=== PATIENT | male | born 1960 | race Caucasian/White ===

== ENCOUNTER 2022-06-13 19:49 | Emergency (ER) | payer BC ==
--- OUTSIDE RECORDS SUMMARY | 2022-06-13 19:52 | XMS REPORT | Clinical Summary ---
:1960 Author Organization [facility] MD [facility] Address [address] [place] [address] Care Team Providers Name Role Phone Jeb Mendoza MD Primary Care Provider Aaron Mckoy MD Unavailable Angelica Hess MD Unavailable Angelica Hess MD Unavailable Carina Pisano Unavailable Unavailable Jeb Mendoza MD Unavailable Russell Rodrigues MD Unavailable Unavailable Cristopher James PhD Unavailable Unavailable Randell Coley MD Unavailable Kassandra Rivers MD Unavailable Iliana Carter Unavailable Antony Cardozo Unavailable Michelle Ordoñez MD Unavailable Aaron Patel Unavailable Leslie Patel PhD Unavailable [phone] Allergies Active Allergy Reactions Severity Noted Date Comments Penicillins Other (See Comments) 12/12/2014 Unknown reaction Medications Medication Sig Dispensed Refills Start Date End Date Status enalapril (VASOTEC) 10 mg Take 10 mg by 0 Active tabletIndications: mouth daily hypertension Indications: Hypertension. zolpidem (AMBIEN) 10 mg Take 1 tablet 0 Active tablet by mouth at bedtime. aspirin 81 mg EC tablet Take 81 mg by 0 Active mouth daily. diclofenac sodium Take by mouth. 0 Active (VOLTAREN) 75 mg EC tablet multivitamin capsule Take 1 capsule 0 Active by mouth daily. UNABLE TO FIND Take 1 tablet 0 A ctive by mouth daily. Med Name: PREVAGEN methylPREDNISolone Take as 21 tablet 0 05/07/2021 Active (Medrol, Jozef,) 4 mg directed tabletIndications: (Directions on Gastroesophageal reflux blister pack) disease, Squamous cell carcinoma of larynx omeprazole (PriLOSEC) 40 Take 1 capsule 30 capsule 3 2 Active MG capsuleIndications: (40 mg) by Laryngitis mouth every morning before breakfast. varenicline (Chantix) 1 Take 1 tablet 60 tablet 2 05/07/2021 Active mg tabletIndications: (1 mg) by Primary malignant mouth twice neoplasm of glottis daily. 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 Nicotine dependence 03/30/2016 Surgical History Surgery Date Site/Laterality Comments VASECTOMY EUA DIRECT LARYNGOSCOPY W/BX 01/07/2013 [place] LARYNGOSCOPY DIRECT 01/28/2019 Mouth/N/A Procedure : DIRECT OPERATIVE OPERATIVE W/BIOPSY LARYNGOSCOPY WITH BIOPSY; Surgeon: Jeb walden MD; Location: [facility]; Service: [facility] - HEAD & NECK SURGERY Medical History Medical History Date Comments Hypertension Arthritis H/O: Tia Chronic obstructive pulmonary disease Gastroesophageal reflux disease Social History Tobacco Use Types Packs/Day Years Used Date Smoking Tobacco: Every Day Cigarettes 2 40 Smokeless Tobacco: Never Comments: puffs off 5 cigarettes per day Alcohol Use Standard Drinks/Week Comments Yes 0 (1 standard drink = 0.6 oz pure alcoho l) Sex Assigned at Date Recorded Not on file Obstetrics History Last Filed Vital Signs Not on file Plan of Treatment Health Maintenance Due Date Last Done Comments COVID-19 Vaccination (#1) 04/12/1959 Results Not on fileafter 06/13/2021 Insurance Payer Benefit Plan / Subscriber ID Effective Dates Phone Addre ss Type Group [employer]PO POS [id number] 2007-Present [id number] [place] [address] Care 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 [employer] Relationship Specialty Start Date End Date Jeb Mendoza MD PCP - General 07/01/[address] [place] [id number] Aaron Mckoy MD PCP - External Primary Care 12/25/12 [address] [place] [address] Angelica Hess MD PCP - External Referring 12/13/12 [address] [place] [phone] Angelica Hess MD PCP - External Follow Up A 12/13/12 [address] [place] [phone] Carina Pisano PA Physician Child & Adolescent Psychiatrist 07/08/15 Jeb Mendoza MD Physician 07/08/[address] [place] [id number] Russell Rodrigues MD Physician 07/08/15 Cristopher James, PhD Physician 07/08/15 Randell Coley MD Physician 07/08/[address] [place] [id number] Kassandra Rivers MD Physician 07/08/[address] [place] [id number] Iliana Carter PA Physician Child & Adolescent Psychiatrist 07/08/[address] [place] [phone] Antony Cardozo PA Physician Child & Adolescent Psychiatrist 07/08/[address] [place] [phone] Michelle Ordoñez MD Physician 07/08/[address] [place] [phone] Aaron Patel PA Physician Child & Adolescent Psychiatrist 07/08/[address] [place] [phone] Leslie aPtel, Speech Language Pathologist 07/08/[address] [place] [id number]
--- OUTSIDE RECORDS SUMMARY | 2022-06-13 19:53 | XMS REPORT | Continuity of Care Document ---
:1960 Author Organization [facility] t Address [address] [place] [address] Care Team Providers Name Role Phone [phone] Primary Care Physician Unavailable Sim Parr MD Attending Clinician Lab, Ang - Db Attending Clinician Unavailable SIM PARR Attending Clinician Unavailable SIM PARR Attending Clinician Unavailable JEFFRY RICCI Attending Clinician Unavailable CLARY HARMAN Attending Clinician Unavailable Doctor Unassigned, [place] Attending Clinician Unavailable 2, [facility] Attending Clinician Unavailable Payers Payer Name Policy Type Policy Number Effective Date Expiration Date S miah [place] POS [id number] 2007 00:00:00 Problems Condition Condition Condition Status Onset Resolution Last Treating Co mments Source Name Details Category Date Date Treatment Clinician Date H/O: TIA H/O: TIA Disease Active Overview: Un mayuri 01-28 Formattin ity of 00:00: g of this note might be [facility] mantilla n from the Cancer original. 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 Center Added automatic ally from request for surgery [id number] Primary Primary Disease Active Univers malignant malignant 08-30 ity of neoplasm neoplasm 00:00: [place] of glottis of glott[place] 00 MD [facility] Nicotine Nicotine Disease Active 2015-05 Unive rs dependence dependence -30 it y of 00:00: [place] 00 MD [facility] No known No known Disease Unive rs active active ity of problems problems [facility] Allergies, Adverse Reactions, Alerts Allergy Allergy Status Severity Reaction(s) Onset Inactive Treating Comm ents Source Name Type Date Date Clinician Penicill Propensi Active Other (See Unknown U nivers ins ty to Comments) 8- reaction ity o f adverse 00:00: [place] reaction 00 MD zoran camejo [facility] Penicill Propensi Active Other - See Unknown Univers ins ty to comments 8-14 reaction ity of adverse 00:00: [place] reaction 00 Medical [facility] PENICILL Drug Active Other-Cmnt Univ ers INS Class 8-14 ity of 00:00: [place] 00 [facility] Social History Social Habit Start Date Stop Date Quantity Comments Source History of tobacco Cigarette Smoker University of use [facility] Exposure to 2021-10-26 2021-11-05 Not sure [facility] SARS-CoV-2 (event) 00:00:00 10:11:00 [facility] Tobacco use and 2019-11-26 2019-11-26 Smokeless tobacco Un iversity of exposure 00:00:00 00:00:00 non-user [facility] Alcohol intake 2019-05-02 2019-05-02 Current drinker Unive rsity of 00:00:00 00:00:00 of alcohol [facility] Cigarettes smoked 2018-03-14 2018-03-14 Univers ity of current (pack per 00:00:00 00:00:00 Marline Kulkarni ) - Reported Cancer Ce nter Cigarette 2018-03-14 2018-03-14 University of pack-years 00:00:00 00:00:00 [facility] Tobacco Comment 2016-07-01 2016-07-01 puffs off 5 Universi ty of 00:00:00 00:00:00 cigarettes per [place] MD [facility] Sex Ass[birth year] At [birth year] Universit y of 00:00:00 00:00:00 [facility] Smoking Status Start Date Stop Date Source Smokes tobacco daily 2019-11-26 00:00:[address] [facility] ity of [place] [facility] Medications Ordered Filled Start Stop Current Ordering Indication Dosage Frequency Signature Comments Components Source Medication Medication Date Date Medication? Clinician (SIG) Name Name mirtazapine 2021-05 Yes [id number] 15mg TAKE 1 U nivers 15 mg 2-16 TABLET BY ity of tablet 00:00: MOUTH AT 00 BEDTIME Medical Branch diclofenac 2021-05 Yes TAKE 1 Unive rs 75 mg EC 2-16 TABLET BY ity of tablet 00:00: MOUTH 00 THREE Medical TIMES Branch DAILY NEEDED FOR PAIN diclofenac 2021-05 Yes 75mg Take 1 Unive rs 75 mg EC 1-21 tablet by ity of tablet 00:00: mouth 3 00 (three) Medical times Branch daily as needed for Pain. diclofenac 2021-05 No 75mg Take 1 Univ ers 75 mg EC 1-21 12-16 tablet by ity o f tablet 00:00: 00:00 mouth 3 [place] 00 :00 (three) Medical times Branch daily as needed for Pain. DICLOFENAC Yes TAKE 1 Unive rs 75 mg EC 9-14 TABLET BY ity of tablet 00:00: MOUTH 00 THREE Medical TIMES Branch DAILY NEEDED FOR PAIN enalapril Yes Take 1 Univer s 10 mg 9-14 tablet by ity of tablet 00:00: mouth once 00 daily Medical Branch esomeprazol Yes TAKE 1 Univ ers e 40 mg 9-14 CAPSULE BY ity of capsule 00:00: MOUTH ONCE a s DAILY WITH Medical BREAKFAST Branch enalapril Yes Take 1 Univer s 10 mg 9-14 tablet by ity of tablet 00:00: mouth once 00 daily Medical Branch esomeprazol Yes TAKE 1 Univ ers e 40 mg 9-14 CAPSULE BY ity of capsule 00:00: MOUTH ONCE [place] 00 DAILY WITH Medical BREAKFAST Branch enalapril Yes Take 1 Univer s 10 mg 9-14 tablet by ity of tablet 00:00: mouth once [place] 00 daily Medical Branch esomeprazol Yes TAKE 1 Univ ers e 40 mg 9-14 CAPSULE BY ity of capsule 00:00: MOUTH ONCE [place] 00 DAILY WITH Medical BREAKFAST Branch DICLOFENAC 0 2021- No TAKE 1 Univ ers 75 mg EC 9-14 11-21 TABLET BY ity o f tablet 00:00: 00:00 MOUTH [place] 00 :00 THREE Medical TIMES Branch DAILY NEEDED FOR PAIN DICLOFENAC Yes TAKE 1 Unive rs 75 mg EC 8-08 TABLET BY ity of tablet 00:00: MOUTH [place] 00 THREE Medical TIMES Branch DAILY NEEDED FOR PAIN DICLOFENAC 2021- No TAKE 1 Univ ers 75 mg EC 8-08 09-14 TABLET BY ity o f tablet 00:00: 00:00 MOUTH [place] 00 :00 THREE Medical TIMES Branch DAILY NEEDED FOR PAIN methylPREDN 0 Yes [id number] Take by [facility] ISolone 4 7-08 mouth ity of mg tablets 00:00: [place]-INSTRU [place] 00 CTIONS. Medical follow Branch package directions mirtazapine Yes [id number] 15mg Take 1 U nivers 15 mg 7-08 tablet by ity of tablet 00:00: mouth at [place] 00 bedtime. Medical Branch methylPREDN 2021-0 Yes [id number] Take by [facility] ISolone 4 7-08 mouth ity of mg tablets 00:00: SEE-INSTRU [place] 00 CTIONS. Medical follow Branch package directions mirtazapine 2021-0 Yes [id number] 15mg Take 1 U nivers 15 mg 7-08 tablet by ity of tablet 00:00: mouth at [place] 00 bedtime. Medical Branch methylPREDN 2021-0 Yes [id number] Take by Univers ISolone 4 7-08 mouth ity of mg tablets 00:00: SEE-INSTRU [place] 00 CTIONS. Medical follow Branch package directions mirtazapine 0 Yes [id number] 15mg Take 1 U nivers 15 mg 7-08 tablet by ity of tablet 00:00: mouth at [place] 00 bedtime. Medical Branch methylPREDN 2021-0 Yes [id number] Take by [facility] ISolone 4 7-08 mouth ity of mg tablets 00:00: SEE-INSTRU [place] 00 CTIONS. Medical follow Branch package directions mirtazapine Yes [id number] 15mg Take 1 U nivers 15 mg 7-08 tablet by ity of tablet 00:00: mouth at [place] 00 bedtime. Medical Branch methylPREDN Yes [id number] Take by [facility] ISolone 4 7-08 mouth ity of mg tablets 00:00: SEE-INSTRU [place] 00 CTIONS. Medical follow Branch package directions mirtazapine 2021- No [id number] 15mg Take 1 Univers 15 mg 7-08 12-16 tablet by ity of tablet 00:00: 00:00 mouth at [place] 00 :00 bedtime. Medical Branch DICLOFENAC Yes TAKE 1 Unive rs 75 mg EC 7-05 TABLET BY ity of tablet 00:00: MOUTH 00 THREE Medical TIMES Branch DAILY NEEDED FOR PAIN DICLOFENAC 2021- No TAKE 1 Univ ers 75 mg EC 7-05 08-08 TABLET BY ity o f tablet 00:00: 00:00 MOUTH [place] 00 :00 THREE Medical TIMES Branch DAILY NEEDED FOR PAIN ENALAPRIL Yes Take 1 Univer s 10 mg 6-13 tablet by ity of tablet 00:00: mouth once daily Medical Branch ESOMEPRAZOL Yes TAKE 1 Univ ers E 40 mg 6-13 CAPSULE BY ity of capsule 00:00: MOUTH ONCE s DAILY WITH Medical BREAKFAST Branch ENALAPRIL Yes Take 1 Univer s 10 mg 6-13 tablet by ity of tablet 00:00: mouth once daily Medical Branch ESOMEPRAZOL Yes TAKE 1 Univ ers E 40 mg 6-13 CAPSULE BY ity of capsule 00:00: MOUTH ONCE s DAILY WITH Medical BREAKFAST Branch ENALAPRIL 2021- No Take 1 Unive rs 10 mg 6-13 09-14 tablet by ity of tablet 00:00: 00:00 mouth once [place] 00 :00 daily Medical Branch ESOMEPRAZOL 0 2021- No TAKE 1 Uni vers E 40 mg 6-13 09-14 CAPSULE BY ity o f capsule 00:00: 00:00 MOUTH ONCE Abdelrahman as 00 :00 DAILY WITH Medical BREAKFAST Branch ZOLPIDEM 10 Yes [id number] 10mg TAKE 1 U nivers mg tablet 5-27 TABLET BY ity o f 00:00: MOUTH AT [place] 00 BEDTIME Medical NEEDED FOR Branch INSOMNIA ZOLPIDEM 10 Yes [id number] 10mg TAKE 1 U nivers mg tablet 5-27 TABLET BY ity o f 00:00: MOUTH AT [place] 00 BEDTIME Medical NEEDED FOR Branch INSOMNIA ZOLPIDEM 10 Yes [id number] 10mg TAKE 1 U nivers mg tablet 5-27 TABLET BY ity o f 00:00: MOUTH AT [place] 00 BEDTIME Medical NEEDED FOR Branch INSOMNIA ZOLPIDEM 10 Yes [id number] 10mg TAKE 1 U nivers mg tablet 5-27 TABLET BY ity o f 00:00: MOUTH AT [place] 00 BEDTIME Medical NEEDED FOR Branch INSOMNIA ZOLPIDEM 10 Yes [id number] 10mg TAKE 1 U nivers mg tablet 5-27 TABLET BY ity o f 00:00: MOUTH AT [place] 00 BEDTIME Medical NEEDED FOR Branch INSOMNIA UNABLE TO Yes 1{tbl} Take 1 Univ ers FIND -07 tablet by ity of 08:59: mouth [place] 16 daily. Med Name: [facility] multivitami Yes 1{capsu Take 1 U nivers n capsule 05-07 le} capsule by ity of 08:57: mouth [place] 22 daily. MD [facility] enalapril Yes hypertensio 10mg Take 10 mg Univers (VASOTEC) 07 n by mouth ity of 10 mg 08:55: daily [place] tablet 48 Indication s: [facility] zolpidem Yes 1{tbl} Take 1 Unive rs (AMBIEN) 10 -07 tablet by ity [facility] mg [facility] aspirin 81 Yes 81mg Take 81 mg U nivers mg EC 07 by mouth ity of tablet 08:55: daily. [place] 48 MD [facility] diclofenac Yes Take by Univ ers sodium 05-07 mouth. ity of (VOLTAREN) 08:55: [place] 75 mg EC 48 MD tablet [facility] methylPREDN Yes Squamous Take as Univers ISolone 05-07 cell directed ity of (Medrol, 00:00: carcinoma (Direction [place] Jozef,) 4 mg 00 of larynx s on MD tablet blister [facility] pack) n [facility] omeprazole Yes Laryngitis 40mg Take 1 Univers (PriLOSEC) 05-07 capsule ity of 40 MG 00:00: (40 mg) by [place] capsule 00 mouth MD every Anderso morning n before Cancer breakfast. [place] varenicline Yes Primary 1mg Take 1 U nivers (Chantix) 1 05-07 malignant tablet (1 ity of mg tablet 00:00: neoplasm of mg) by 00 glott[place] mouth MD twice Anderso daily. n [facility] buPROPion 2018-05 Yes [id number] 75mg Take 1 U nivers 75 mg 1-05 tablet by ity of tablet 00:00: mouth 2 00 (two) Medical times Branch daily. For the first week, take one per day. propranolol 2018-05 Yes 10mg Take 1 Univ ers 10 mg 1-05 tablet by ity of tablet 00:00: mouth [place] 00 daily. Medical Branch buPROPion 2018-05 Yes [id number] 75mg Take 1 U nivers 75 mg 1-05 tablet by ity of tablet 00:00: mouth 2 [place] (two) Medical times Branch daily. For the first week, take one per day. propranolol 2018-05 Yes 10mg Take 1 Univ ers 10 mg 1-05 tablet by ity of tablet 00:00: mouth [place] 00 daily. Medical Branch buPROPion 2018-05 Yes [id number] 75mg Take 1 U nivers 75 mg 1-05 tablet by ity of tablet 00:00: mouth 2 [place] (two) Medical times Branch daily. For the first week, take one per day. propranolol 2018-05 Yes 10mg Take 1 Univ ers 10 mg 1-05 tablet by ity of tablet 00:00: mouth [place] 00 daily. Medical Branch buPROPion 2018-05 Yes [id number] 75mg Take 1 U nivers 75 mg 1-05 tablet by ity of tablet 00:00: mouth 2 [place] 00 (two) Medical times Branch daily. For the first week, take one per day. propranolol 2018-05 Yes 10mg Take 1 Univ ers 10 mg 1-05 tablet by ity of tablet 00:00: mouth 00 daily. Medical Branch buPROPion 2018-05 Yes [id number] 75mg Take 1 U nivers 75 mg 1-05 tablet by ity of tablet 00:00: mouth (two) Medical times Branch daily. For the first week, take one per day. propranolol 2018-05 Yes 10mg Take 1 Univ ers 10 mg 1-05 tablet by ity of tablet 00:00: mouth 00 daily. Medical Branch varenicline Yes Take one Un mayuri (CHANTIX 7-25 0.5mg tab ity of STARTING 00:00: by mouth [facility]) 00 once daily Med ical 0.5 mg for 3 Branch (11)- 1 mg days, then (42) tablet one 0.5mg tab twice daily for 4 days, then one 1mg tab twice daily. varenicline Yes Take one Un mayuri (CHANTIX 7-25 0.5mg tab ity of STARTING 00:00: by mouth [facility]) 00 once daily Med ical 0.5 mg for 3 Branch (11)- 1 mg days, then (42) tablet one 0.5mg tab twice daily for 4 days, then one 1mg tab twice daily. varenicline Yes Take one Un mayuri (CHANTIX 7-25 0.5mg tab ity of STARTING 00:00: by mouth [facility]) 00 once daily Med ical 0.5 mg for 3 Branch (11)- 1 mg days, then (42) tablet one 0.5mg tab twice daily for 4 days, then one 1mg tab twice daily. varenicline Yes Take one Un mayuri (CHANTIX 7-25 0.5mg tab ity of STARTING 00:00: by mouth [facility]) 00 once daily Med ical 0.5 mg for 3 Branch (11)- 1 mg days, then (42) tablet one 0.5mg tab twice daily for 4 days, then one 1mg tab twice daily. varenicline Yes Take one Un mayuri (CHANTIX 7-25 0.5mg tab ity of STARTING 00:00: by mouth [place] MONTH ) 00 once daily Med ical 0.5 mg for 3 Branch (11)- 1 mg days, then (42) tablet one 0.5mg tab twice daily for 4 days, then one 1mg tab twice daily. varenicline 2017-05 Yes 1 by mouth Univers 0.5 mg 2-07 per day ity of tablet 00:00: for 3 [place] 00 days, then Medical one by Branch mouth twice per day. varenicline 2017-05 Yes 1 by mouth Univers 0.5 mg 2-07 per day ity of tablet 00:00: for 3 00 days, then Medical one by Branch mouth twice per day. varenicline 2017-05 Yes 1 by mouth Univers 0.5 mg 2-07 per day ity of tablet 00:00: for 3 00 days, then Medical one by Branch mouth twice per day. varenicline 2017-05 Yes 1 by mouth Univers 0.5 mg 2-07 per day ity of tablet 00:00: for 3 days, then Medical one by Branch mouth twice per day. varenicline 2017-05 Yes 1 by mouth Univers 0.5 mg 2-07 per day ity of tablet 00:00: for 3 days, then Medical one by Branch mouth twice per day. ULTRAM 50 2021- No 102 every Un mayuri MG ORAL TAB -17 11-05 8 hrs as ity of 00:00: 00:00 needed for [place] 00 :00 [facility] Immunizations Ordered Filled Immunization Date Status Comments [facility] e Immunization Name Name Td 2009-09-14 Completed [facility] 00:00:00 [facility] Td 2009-09-14 Completed [facility] 00:00:00 [facility] Td 2009-09-14 Completed [facility] 00:00:00 [facility] Td 2009-09-14 Completed University 00:00:00 [facility] Td 2009-09-14 Completed [facility] 00:00:00 [facility] Vital Signs Vital Name Observation Time Observation Value Comments Source Systolic blood 2021-11-05 15:57:00 117 mm[Hg] Declaner leif [facility] Diastolic blood 2021-11-05 15:57:00 65 mm[Hg] Adriane rsgunjan [facility] Heart rate 2021-11-05 15:56:00 76 /min [facility] Body height 2021-11-05 15:56:00 182.9 cm [facility] Body weight 2021-11-05 15:56:00 56.7 kg [facility] BMI 2021-11-05 15:56:00 16.95 kg/m2 [facility] Oxygen saturation 2021-11-05 15:56:00 97 /min [facility] in Arterial blood Medical Br anch by Pulse oximetry Procedures This patient has no known procedures. Plan of Care Planned Activity Planned Date Details Comments Source Future Scheduled 2021-12-11 COVID-[address] [facility] Test 11:19:10 (#1) [code = COVID-19 MD [facility] Vaccination (#1)] Center Encounters Start End Encounter Admission Attending Care Care Encounter Source Date/Time Date/Time Type Type Clinicians Facility Department ID 2022-04-15 2022-04-15 [facility] 1.2.840.114 [id number] Univers 00:00:00 00:00:00 [facility] [id number] ity of [place] [id number] Abdelrahman as ALVAREZ?BLEA [id number] [address] MEDICAL OFFICE [facility] 2022-03-21 2022-03-[address] [facility] 1.2.840.114 [id number] Univers 00:00:00 00:00:00 [facility] [id number] ity of [place] [id number] Abdelrahman as ALVAREZ?BLEA [id number] [address] MEDICAL OFFICE [facility] 2022-01-12 2022-01-12 [facility] 1.2.840.114 [id number] Univers 00:00:00 00:00:00 [facility] [id number] ity of [place] [id number] Abdelrahman as ALVAREZ?BLEA [id number] [address] OFFICE [facility] 2021-12-04 2021-12-04 [facility] 1.2.840.114 [id number] Univers 00:00:00 00:00:00 [facility] [id number] ity of [place] [id number] Abdelrahman as ALVAREZ?BLEA [id number] Hi dillon SILVEIRA [address] [place] [address] 2021-11-05 2021-11-05 Motel Clerk Lab, Ang - Db [facility] 1.2.840.1 [id number] Univers 12:15:00 12:30:00 Visit Sim Parr [facility] [id number]. 10 ity of [place] [id number] Abdelrahman as ALVAREZ?BLEA [id number] [facility] RAOUL [address] [facility] 2021-11-05 2021-11-05 Outpatient Jose NIEVESGamaliel SIM [facility] [id number] Univers 10:20:00 12:02:58 KESHAV SIM [facility] 2021-11-05 2021-11-05 [facility] 1.2.840.114 [id number] Univers 10:20:00 12:02:58 Visit [facility] [id number] ity of [place] [id number] Abdelrahman as ALVAREZ?BLEA [id number] [address] 2021-11-05 2021-11-05 Outpatient Jose KESHAV SIM [facility] [id number] Univers 10:20:00 12:02:58 KESHAVSIM [facility] 2021-10-31 2021-10-31 [facility]ill [facility] 1.2.840.114 [id number] Univers 00:00:00 00:00:00 [facility] [id number] ity of [place] [id number] Abdelrahman as ALVAREZ?BLEA [id number] [facility] [address] 2021-10-09 2021-10-09 [facility] 1.2.840.114 [id number] Univers 00:00:00 00:00:00 [facility] [id number] ity of [place] [id number] Abdelrahman as ALVAREZ?BLEA [id number] [address] 2021-09-16 2021-09-[address] [facility] 1.2.840.114 [id number] Univers 00:00:00 00:00:00 [facility] [id number] ity of [place] [id number] Abdelrahman as ALVAREZ?BLEA [id number] [address] 2021-08-09 2021-08-[address] [facility] 1.2.840.114 [id number] Univers 00:00:00 00:00:00 [facility] [id number] ity of [place] [id number] Abdelrahman as ALVAREZ?BLEA [id number] [address] 2021-07-19 2021-07-[address] [facility] 1.2.840.114 [id number] Univers 00:00:00 00:00:00 [facility] [id number] ity of [id number] [id number] [address] 2021-06-14 2021-06-[address] [facility] 1.2.840.114 [id number] Univers 00:00:00 00:00:00 [facility] [id number] ity of [place] [id number] Abdelrahman as ALVAREZ?BLEA [id number] [address] 2021-05-07 2021-05-07 Outpatient JEFFRY COOL MDA, MDA [id number] 08:40:27 23:59:00 Nelson camejo 2021-04-16 2021-04-16 Outpatient JEFFRY COOL MDA, MDA [id number] 11:08:22 23:59:00 Nelson camejo 2021-04-16 2021-04-16 Outpatient SARAH HAMRAN MDA MDA [id number] 08:41:15 11:07:00 CLARY Torres rso n 2021-04-16 2021-04-16 Outpatient SARAH HARMAN MDA MDA [id number] 07:45:00 08:40:00 CLARY colungao n 2021-04-16 2021-04-16 Outpatient SARAH HARMAN MDA MDA [id number] 08:12:16 08:12:16 CLARY Torres cuauhtemoc n 2021-03-30 2021-03-30 Refpaco Parr [facility] 1.2.840.114 [id number] Univers 00:00:00 00:00:00 [facility] [id number] ity of [place] [id number] Abdelrahman as ALVAREZ?BLEA [id number] [address] OFFICE [facility] 2021-03-02 2021-03-02 Outpatient SIM SANDHU [facility] [id number] Univers 16:20:00 16:20:00 SIM PARR [facility] 2021-02-03 2021-02-03 Refpaco Parr [facility] 1.2.840.114 [id number] Univers 00:00:00 00:00:00 Sim [facility] [id number] ity of [id number] Profess[place] [id number] [address] 2020-12-21 2020-12-21 Office Keshav [facility] 1.2.840.114 [id number] Univers 10:15:56 11:18:23 Visit [facility] [id number] ity of [place] [id number] Abdelrahman as Alvarez?Blea [id number] [address] 2020-12-21 2020-12-21 Outpatient SIM SANDHU [facility] [id number] Univers 10:40:00 10:40:00 SIM PARR [facility] 2020-12-11 2020-12-11 Telephone Keshav [facility] 1.2.840.114 [id number] Univers 00:00:00 00:00:00 Sim Go[place] [id number] ity of [place] [id number] [place] [phone] Hi dical nal 092 [facility] 2020-12-11 2020-12-11 [facility] 1.2.840.114 [id number] Univers 00:00:00 00:00:00 Sim Goetz [id number] [place] of [place] [id number] [phone] Hi dical nal [address] [place] [address] 2020-12-02 2020-12-02 [facility] 1.2.840.114 [id number] Univers 00:00:00 00:00:00 Sim Goetz [id number] ity of [place] [id number] [place] [phone] Hi dicva nal [address] [place] [address] 2020-11-25 2020-11-[address] [facility] 1.2.840.114 [id number] Univers 00:00:00 00:00:00 Sim GOETZ [id number] ity of [facility] [id number] [place] PROF[place] [phone] Hi dical NAL [address] [place] [address] 2020-11-20 2020-11-[address] [facility] 1.2.840.114 [id number] Univers 00:00:00 00:00:00 Sim Goetz [id number] it[place] of [place] [id number] [phone] Hi dical nal [address] [place] [address] 2020-10-25 2020-10-[address] [facility] 1.2.840.114 [id number] Univers 00:00:00 00:00:00 Sim [place] [id number] ity of [place] [id number] [place] [phone] Hi dical nal [address] [place] [address] 2020-09-29 2020-09-29 Refpaco [facility] 1.2.840.114 [id number] Univers 00:00:00 00:00:00 Sim Goetz [id number] [place] of [place] [id number] [phone] Hi dicva nal 092 [facility] 2020-08-19 2020-08-19 Refpaco [facility] 1.2.840.114 [id number] Univers 00:00:00 00:00:00 Sim Goetz [id number] [place] of [place] [id number] [phone] Hi dicva nal [address] [place] [address] 2020-07-17 2020-07-17 [facility] 1.2.840.114 [id number] Univers 00:00:00 00:00:00 Sim Goetz [id number] ity of [place] [id number] [phone] [facility] [address] [place] [address] 2020-07-11 2020-07-11 [facility] 1.2.840.114 [id number] Univers 00:00:00 00:00:00 Sim Goetz [id number] [place] of [place] [id number] [phone] [facility] [address] [place] [address] 2020-05-29 2020-05-29 Orders Doctor MAMIE 1.2.840.114 [id number] Univers 00:00:00 00:00:00 Only Unassigned, VIOLET [id number] ity of [place] [facility] 4.2.7.2.686 Abdelrahman as [phone] [address] 2020-05-27 2020-05-27 [facility] 1.2.840.114 [id number] Univers 00:00:00 00:00:00 Sim Goetz [id number] [id number] [phone] [address] 2020-05-21 2020-05-21 Refpaco Keshav [facility] 1.2.840.114 [id number] Univers 00:00:00 00:00:00 Sim Goetz [id number] [id number] [phone] [address] 2020-04-07 2020-04-07 Orders Doctor MAMIE 1.2.840.114 [id number] Univers 00:00:00 00:00:00 Only Unassigned, VIOLET [id number] ity of [place] [facility] 4.2.7.2.686 Abdelrahman as [phone] [address] 2020-04-02 2020-04-02 [facility] 1.2.840.114 [id number] Univers 00:00:00 00:00:00 Sim Goetz [id number] [place] [phone] [address] 2020-02-25 2020-02-25 [facility] 1.2.840.114 [id number] Univers 00:00:00 00:00:00 Sim Goetz [id number] it[place] of [place] [phone] [address] 2019-12-03 2019-12-03 [facility] 1.2.840.114 [id number] Univers 00:00:00 00:00:00 Sim Goetz [id number] [place] of [id number] [phone] [address] 2019-11-26 2019-11-26 Motel Clerk 2, Adc Lab [facility] 1.2.840.114 [id number] Univers 10:16:55 10:31:55 Visit Sim Parr 350.1.13 .10 it[place] of [place]2.[place] [phone] Hi dical nal 353 [facility] 2019-11-26 2019-11-26 Office Keshav [facility] 1.2.840.114 [id number] Univers 09:17:01 10:03:28 Visit Sim Goetz 350.1.13.10 it[place] of [place] [phone] Hi dicva nal 0[facility] 2019-11-26 2019-11-26 Outpatient SIM SANDHU [facility] [id number] Univers 09:20:00 09:20:00 SIM PARR ity of [facility] 2019-11-20 2019-11-20 Telephone Keshav [facility] 1.2.840.114 [id number] Univers 00:00:00 00:00:00 Sim Goetz 350.1.13.10 it[place] of [place] [phone] [facility] nal 0[facility] 2019-10-08 2019-10-08 [facility] 1.2.840.114 [id number] Univers 00:00:00 00:00:00 Sim Goetz 350.1.13.10 ity of [place]2.[place] [phone] Hi dical [place]al [address] [place] [address] 2019-09-02 2019-09-02 [facility] 1.2.840.114 [id number] Univers 00:00:00 00:00:00 Sim Goetz 350.1.13.10 [place] of [place]2.[place] [phone] Hi dicva nal [address] [place] [address] 2019-08-18 2019-08-18 [facility] 1.2.840.114 [id number] Univers 00:00:00 00:00:00 Sim Goetz 350.1.13.10 [place]2.[place] [phone] Me dical nal 092 [facility] 2019-07-31 2019-07-31 [facility] 1.2.840.114 [id number] Univers 00:00:00 00:00:00 Sim Goetz 350.1.13.10 [place] of [place]2.[place] [phone] Hi dical nal 2 [facility] 2019-07-26 2019-07-26 [facility] 1.2.840.114 [id number] Univers 00:00:00 00:00:00 Sim Goetz 350.1.13.10 [place]2.[place] [phone] Hi dicva nal 2 [facility] 2019-06-13 2019-06-13 [facility] 1.2.840.114 [id number] Univers 00:00:00 00:00:00 Sim Goetz 350.1.13.10 [place] [phone] [address] Results This patient has no known results.
[2022-06-13 21:46] LABS: Absolute Lymphocytes (CBC) 1.8 K/uL (0.7-4.9); Hematocrit 43.2 % (39.6-49.0); Lymphocytes % 18.4 % (15.3-44.8); MCV 92.6 fL (80-100); MPV 8.1 fL (7.6-11.3); RBC Red Blood Cell Count 4.66 M/uL (4.33-5.43)
[2022-06-13 22:11] LABS: Magnesium 2.3 mg/dL (1.6-2.4); Potassium 4.1 mmol/L (3.5-5.1); Troponin High Sensitivity 9.3 pg/mL (<58.9)
[2022-06-13 22:22] LABS: SARS-COV-2 RT PCR NEGATIVE (NEGATIVE)
--- NOTE | 2022-06-13 22:23 | RAD REPORT ---
EXAM DESCRIPTION: [place] Single View06/13/2022 10:13 pm CLINICAL HISTORY: left upper arm pain COMPARISON: CHEST PA AND LAT 2 VIEW dated 11/15/2012; CHEST SINGLE VIEW dated 12/23/2011; CHEST SINGLE VIEW dated 06/23/2008 TECHNIQUE: Portable AP view of the chest. FINDINGS: The lungs are clear.Mild hyperinflation. No pneumothorax or effusion. The cardiomediastina l contours are unremarkable. IMPRESSION: No acute cardiopulmonary process.
[2022-06-13] MEDS ORDERED: hydroCHLOROthiazide 25 MG TAB ONE (23:53)
--- NOTE | 2022-06-14 01:00 | EDPHYS ---
Physician Documentation [facility] Name: Josiah Monreal Age: 61 yrs Sex: Male : 1960 Arrival Date: 06/13/2022 Time: 19:53 Bed 14 Private MD: ED Physician Sonny Ferguson HPI: 06/13 20:50 This 61 yrs old Male presents to ER via Ambulatory with complaints of High Blood cp Pressure, Arm Pain. Historical: - Allergies: 20:39 No Known Allergies; jh5 - PMHx: 20:39 Hypertensive disorder; 5 - Immunization history:: Adult Immunizations up to date. - Social history:: Smoking status: Patient reports the use of cigarette tobacco products, smokes one-half pack cigarettes per day. ROS: 20:25 Constitutional: Negative for body aches, chills, fever, poor PO intake. cp 20:25 Cardiovascular: Negative for chest pain, edema, palpitations. cp 20:25 MS/extremity: Positive for pain, of the right arm. Exam: 20:30 Constitutional: The patient appears in no acute distress, alert, awake, cp non-diaphoretic, non-toxic, well developed, well nourished. 20:30 Head/Face: Normocephalic, atraumatic. cp 20:30 Chest/axilla: Inspection: normal, Palpation: is normal, no crepitus, no tenderness. cp 20:30 Cardiovascular: Rate: normal, Rhythm: regular, Edema: is not appreciated, JVD: is not appreciated. 21:53 ECG was reviewed by the Attending Physician. cp Vital Signs: 20:36 BP 182 / 93; Pulse 71; Resp 18; Temp 98.6; Pulse Ox 100% ; Weight 57.61 kg; Height 6 jh5 ft. 0 in. (182.88 cm); Pain 3/10; 22:23 BP 183 / 98 RA Sitting (auto/reg); Pulse 74; Resp 16; Pulse Ox 99% on R/A; jb4 22:25 BP 193 / 107 LA Sitting (auto/reg); Pulse 72; Resp 14; Pulse Ox 99% on R/A; jb4 23:00 BP 145 / 89; Pulse 72; Resp 16; Pulse Ox 98% on R/A; jb4 23:42 BP 168 / 87; Pulse 68; Resp 14; Pulse Ox 98% ; 4 06/14 00:00 BP 144 / 92; Pulse 73; Resp 15; Pulse Ox 97% on R/A; 4 06/13 20:36 Body Mass Index 17.23 (57.61 kg, 182.88 cm) jh5 MDM: 06/13 21:03 Patient medically screened. 06/13 20:46 Order name: Basic Metabolic Panel 06/13 20:46 Order name: CBC with Diff 06/13 20:46 Order name: Magnesium 06/13 20:46 Order name: Troponin HS 06/13 20:46 Order name: COVID-19/FLU A+B cp 06/13 20:46 Order name: Urine Microscopic Only 06/13 20:46 Order name: XRAY Chest (1 view) 06/13 21:49 Order name: CBC with Automated Diff; Complete Time: 23:06 EDMS 06/13 23:07 Interpretation: Reviewed. 06/13 22:11 Order name: Basic Metabolic Panel; Complete Time: 23:06 EDMS 06/14 00:22 Interpretation: Reviewed. 06/13 22:11 Order name: Troponin High Sensitivity; Complete Time: 23:06 EDMS 06/14 00:22 Interpretation: Reviewed. 06/13 22:11 Order name: Magnesium; Complete Time: 23:07 EDMS 06/14 00:24 Interpretation: Reviewed. 06/13 22:23 Order name: COVID-19/FLU A+B; Complete Time: 23:07 EDMS 06/14 00:24 Interpretation: Reviewed. 06/13 22:23 Order name: RAD; Complete Time: 23:07 EDMS 06/14 00:25 Interpretation: Report reviewed. 06/13 23:08 Order name: CT Head Brain wo Cont 06/13 20:46 Order name: EKG; Complete Time: 20:47 cp 06/13 20:46 Order name: Cardiac monitoring; Complete Time: 22:21 cp 06/13 20:46 Order name: EKG - Nurse/Tech; Complete Time: 21:50 cp 06/13 20:46 Order name: IV Saline Lock; Complete Time: 21:37 cp 06/13 20:46 Order name: Labs collected and sent; Complete Time: 21:37 cp 06/13 20:46 Order name: O2 Per Protocol; Complete Time: 22:21 cp 06/13 20:46 Order name: O2 Sat Monitoring; Complete Time: 22:21 cp 06/13 20:46 Order name: Blood Pressure Recheck: bilateral upper extremity; Complete Time: 22:54 cp EC:53 Rate is 78 beats/min. Rhythm is regular. VA interval is normal. QRS interval is normal. cp QT interval is normal. T waves are Inverted in lead aVR. Interpreted by me. Reviewed by me. Administered Medications: 23:56 Not Given (Physician Discretion): NS 0.9% 500 ml IV at bolus once cp 23:59 Not Given (Other Intervention Used): cloNIDine 0.1 mg PO once [facility] 23:59 Drug: Hydrochlorothiazide 25 mg Route: PO; [facility] 06/14 01:21 Follow up: Response: No adverse reaction; Marked relief of symptoms jb4 Disposition Summary: 06/14/22 01:00 Discharge Ordered Location: Home cp Problem: new cp Symptoms: have improved cp Condition: Stable cp Diagnosis - Pain in right upper arm cp - Hypertensive heart disease without heart failure cp Followup: cp - With: Private Physician - When: 2 - 3 days - Reason: Recheck today's complaints Discharge Instructions: - Discharge Summary Sheet cp - Hypertension, Adult cp - Musculoskeletal Pain cp - Aspirin and Your Heart cp - Form - Blood Pressure Record Sheet cp - How to Take Your Blood Pressure cp Forms: - Medication Reconciliation Form cp - Thank You Letter cp - Antibiotic Education cp - Prescription Opioid Use cp Prescriptions: - Hydrochlorothiazide 25 mg Oral Tablet - take 1 tablet by ORAL route once daily .; 30 tablet; Refills: 0, Product cp Selection Permitted Signatures: Dispatcher [employer] EDTX Sonny Bains PA PA cp Mannie Miranda, RN RN jb4 Susan Allen RN RN jh5 Corrections: (The following items were deleted from the chart) 06/15 01:20 01:20 Constitutional: Negative for body aches, chills, fever, poor PO intake, cp cp
--- NOTE | 2022-06-14 01:00 | ER ---
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 Coronavirus screen: Vaccine status: Patient reports being unvaccinated. Client denies travel out of the [place] in the last 14 days. Ebola Screen: Patient negative for fever greater than or equal to 101.5 degrees Fahrenheit, and additional compatible Ebola Virus Disease symptoms Patient denies exposure to infectious person. Patient denies travel to an Ebola-affected area in the 21 days before illness onset. Initial Sepsis Screen: Does the patient meet any 2 criteria? No. Patient's initial sepsis screen is negative. Does the patient have a suspected source of infection? No. Patient's initial sepsis screen is negative. Risk Assessment: Do you want to hurt yourself or someone else? Patient reports no desire to harm self or others. Onset of symptoms was June 13, 2022. 20:36 Method Of Arrival: Ambulatory [facility] 20:36 Acuity: RC 3 5 Triage Assessment: 20:39 General: Appears in no apparent distress. slender, well groomed, well developed, [facility] Behavior is calm, cooperative, appropriate for age. Pain: Complains of pain in chest. Historical: - Allergies: 20:39 No Known Allergies; 5 - PMHx: 20:39 Hypertensive disorder; [facility] - Immunization history:: Adult Immunizations up to date. - Social history:: Smoking status: Patient reports the use of cigarette tobacco products, smokes one-half pack cigarettes per day. Screenin:15 [facility] ED Fall Risk Assessment (Adult) History of falling in the last 3 months, jb4 including since admission No falls in past 3 months (0 pts) Confusion or Disorientation No (0 pts) Score/Fall Risk Level 0 - 2 = Low Risk Oriented to surroundings, Maintained a safe environment. 22:15 Abuse screen: Denies threats or abuse. Nutritional screening: No deficits noted. jb4 Tuberculosis screening: No symptoms or risk factors identified. Assessment: 22:15 General: Appears in no apparent distress. comfortable. Pain: Denies pain. Neuro: Level jb4 of Consciousness is awake, alert, obeys commands, Oriented to person, place, time, situation. Cardiovascular: Patient's skin is warm and dry. Respiratory: Airway is patent Respiratory effort is even, unlabored, Respiratory pattern is regular, symmetrical. GI: No signs and/or symptoms were reported involving the gastrointestinal system. : No signs and/or symptoms were reported regarding the genitourinary system. EENT: No signs and/or symptoms were reported regarding the EENT system. Derm: Skin is intact, Skin is pink, warm \T\ dry. Musculoskeletal: Circulation, motion, and sensation intact. Range of motion: intact in all extremities. 23:30 Reassessment: Patient appears in no apparent distress at this time. Patient and/or jb4 family updated on plan of care and expected duration. Pain level reassessed. Patient is alert, oriented x 3, equal unlabored respirations, skin warm/dry/pink. 06/14 00:30 Reassessment: Patient appears in no apparent distress at this time. Patient and/or jb4 family updated on plan of care and expected duration. Pain level reassessed. Patient is alert, oriented x 3, equal unlabored respirations, skin warm/dry/pink. 01:18 Reassessment: Patient appears in no apparent distress at this time. Patient and/or jb4 family updated on plan of care and expected duration. Pain level reassessed. Patient is alert, oriented x 3, equal unlabored respirations, skin warm/dry/pink. Vital Signs: 06/13 20:36 BP 182 / 93; Pulse 71; Resp 18; Temp 98.6; Pulse Ox 100% ; Weight 57.61 kg; Height 6 jh5 ft. 0 in. (182.88 cm); Pain 3/10; 22:23 BP 183 / 98 RA Sitting (auto/reg); Pulse 74; Resp 16; Pulse Ox 99% on R/A; jb4 22:25 BP 193 / 107 LA Sitting (auto/reg); Pulse 72; Resp 14; Pulse Ox 99% on R/A; jb4 23:00 BP 145 / 89; Pulse 72; Resp 16; Pulse Ox 98% on R/A; jb4 23:42 BP 168 / 87; Pulse 68; Resp 14; Pulse Ox 98% ; jb4 06/14 00:00 BP 144 / 92; Pulse 73; Resp 15; Pulse Ox 97% on R/A; jb4 06/13 20:36 Body Mass Index 17.23 (57.61 kg, 182.88 cm) [facility] ED Course: 06/13 19:53 Patient arrived in ED. jj6 20:36 Arm band placed on right wrist. jh5 20:39 Triage completed. jh5 20:43 Sonny Bains PA is PHCP. cp 20:43 Sonny Ferguson MD is Attending Physician. cp 21:36 COVID-19/FLU A+B Sent. bc6 21:37 Basic Metabolic Panel Sent. bc6 21:37 CBC with Diff Sent. bc6 21:37 Magnesium Sent. bc6 21:37 Troponin HS Sent. bc6 21:37 Inserted saline lock: 20 gauge in left antecubital area, using aseptic technique. bc6 21:50 EKG done, by ED staff, reviewed by Sonny BARRIOS. bc6 22:15 Patient has correct armband on for positive identification. Placed in gown. Bed in low jb4 position. Call light in reach. Side rails up X 1. Client placed on continuous cardiac and pulse oximetry monitoring. NIBP monitoring applied. phototypesetting equipment monitor on. 06/14 00:27 Mannie Miranda, RN is Primary Nurse. 4 01:20 No provider procedures requiring assistance completed. IV discontinued, intact, jb4 bleeding controlled, No redness/swelling at site. Pressure dressing applied. Administered Medications: 06/13 23:56 Not Given (Physician Discretion): NS 0.9% 500 ml IV at bolus once cp 23:59 Not Given (Other Intervention Used): cloNIDine 0.1 mg PO once [facility] 23:59 Drug: Hydrochlorothiazide 25 mg Route: PO; 4 06/14 01:21 Follow up: Response: No adverse reaction; Marked relief of symptoms jb4 Medication: 01:18 VIS not applicable for this client. jb4 Outcome: 01:00 Discharge ordered by . cp 01:20 Discharged to home ambulatory, with family. 4 01:20 Condition: stable 01:20 Discharge instructions given to patient, Instructed on discharge instructions, follow up and referral plans. Demonstrated understanding of instructions, follow-up care, Prescriptions given X 1. 01:21 Patient left the ED. jb4 Signatures: Sonny Bains PA PA cp Bryson, James, RN RN jb4 Taryn Bronson jj6 Susan Allen RN RN jh5 Mikayla Kwok 6 Corrections: (The following items were deleted from the chart) 06/13 20:41 20:36 Pulse 71bpm; Resp 18bpm; Pulse Ox 100%; Temp 98.6F; 57.61 kg; Height 6 ft. 0 in.; jh5 BMI: 17.2; Pain 3/10; jh5
[2022-06-14 01:56] VITALS: TEMP 98.6
[2022-06-14 02:01] VITALS: BP 144/92; O2SAT 97
--- NOTE | 2022-06-14 17:10 | EKG ---
Test Date: 2022-06-13 Test Time: 21:45:48 Loading Rack Supervisor: CHRISTIAN MEASUREMENT RESULTS: Intervals: Rate: 78 DE: 134 QRSD: 88 QT: 390 QTc: 444 [place]: P: 83 DE: 134 QRS: 95 T: 65 INTERPRETIVE STATEMENTS: Normal sinus rhythm with sinus arrhythmia Rightward axis Pulmonary disease pattern Abnormal ECG Compared to ECG 12/06/2012 15:26:09 Right-axis deviation now present Atrial premature complex(es) no longer present Electronically Signed On 06-14-22 17:08:35 ELECTROTYPE SERVICER by Elkin Oliver
--- NOTE | 2022-06-14 20:20 | RAD REPORT ---
EXAM DESCRIPTION: CT - Head Brain Wo Cont - 06/14/2022 6:45 am CLINICAL HISTORY: 61 years Male, hypertensive TECHNIQUE: Helical CT axial images are obtained from the base of skull through the vertex without IV contrast. Multiplanar reconstruction. This exam was performed according to our departmental dose-opt imization program, which includes automated exposure control, adjustment of the mA and/or kV accordin g to patient size and/or use of iterative reconstruction technique. COMPARISON: None. FINDINGS: BRAIN: No infarcts. No parenchymal hemorrhage, intra-axial mass, mass effect, or midline shift. No abnormal extra-axial fluid collections. VENTRICLES: Ventricles are normal in size and configuration. No hydrocephalus. CALVARIUM: Bone windows show no skull fracture or calvarial lesions. PARANASAL SINUSES AND MASTOIDS: Visualized paranasal sinuses are clear. Mastoid air cells are jared r. IMPRESSION: 1. Negative noncontrast CT examination of brain. Electronically signed by: Nam Thacker MD 06/14/2022 12:19 AM BLOOM CONVEYOR OPERATOR Due to temporary technical issues with the PACS/Fluency reporting system, reports are being signed by the in house radiologists without review as a courtesy to insure prompt reporting. The interpreting radiologist is fully responsible for the content of the report.
== END 2022-06-14 01:21 | disposition home or self-care (01) ==
LOC: ER 19:49
DX: I11.9 Hypertensive heart disease without heart failure (principal); F17.210 Nicotine dependence, cigarettes, uncomplicated; Z20.822 Contact with and (suspected) exposure to COVID-19
CPT/HCPCS: 93005; 85025; 80048; 36415; 83735; 84484; 0240U; 70450; 71045

== ENCOUNTER 2022-07-03 16:39 | Emergency (ER) | payer BC ==
[2011-12-24 14:38] VITALS: BP 122/73
--- OUTSIDE RECORDS SUMMARY | 2022-07-03 16:42 | XMS REPORT | Clinical Summary ---
:1960 Author Organization [facility] MD [facility] Address [address] [place] [address] Care Team Providers Name Role Phone Jeb Mendoza MD Primary Care Provider Aaron Mckoy MD Unavailable Angelica Hess MD Unavailable Angelica Hess MD Unavailable Carina Pisano Unavailable Unavailable Jeb Mendoza MD Unavailable Russell Rodrigues MD Unavailable Unavailable Cristopher James PhD Unavailable Unavailable Randlel Coley MD Unavailable Kassandra Rivers MD Unavailable Iliana Carter Unavailable Antony Cardozo Unavailable Michelle Ordoñez MD Unavailable Aaron Patel Unavailable Leslie Patel PhD Unavailable [phone] Allergies Active Allergy Reactions Severity Noted Date [...] Added automatically from request for stan shine [id number] 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 Nicotine dependence 03/30/2016 Surgical History Surgery Date Site/Laterality Comments VASECTOMY EUA DIRECT LARYNGOSCOPY W/BX 01/07/2013 ID LARYNGOSCOPY DIRECT 01/28/2019 Mouth/N/A Procedure : DIRECT [...] Vaccination (#1) 04/12/1959 Results Not on fileafter 07/03/2021 Insurance Payer Benefit Plan / Subscriber ID Effective Dates Phone Addre ss Type Group [employer] [place] POS [id number] 2007-Present [id number] [place] [address] Care Teams Renewal Specialist Relationship Specialty Start Date End Date Jeb Mendoza MD PCP - General 07/01/[address] [place] [id number] Aaron Mckoy MD PCP - External Primary Care 12/25/12 [address] [place] [address] Angelica Hess MD PCP - External Referring 12/13/12 [address] [place] [phone] Angelica Hess MD PCP - External Follow Up A 12/13/12 [address] [place] [phone] Cairna Pisano PA Physician Racket Stringer 07/08/15 Jeb Mendoza MD Physician 07/08/[address] [place] [id number] Russell Rodrigues MD Physician 07/08/15 Cristopher James, PhD Physician 07/08/15 Randell Coley MD Physician 07/08/[address] [place] [id number] Kassandra Rivers MD Physician 07/08/[address] [place] [id number] Iliana Carter PA Physician Racket Stringer 07/08/[address] [place] [id number] Antony Cardozo PA Physician Racket Stringer 07/08/[address] [place] [id number] Michelle Ordoñez MD Physician 07/08/[address] [place] [phone] Aaron Patel PA Physician Racket Stringer 07/08/[address] [place] [id number] Leslie Patel, Speech Language Pathologist 07/08/[address] [place] [id number]
--- OUTSIDE RECORDS SUMMARY | 2022-07-03 16:43 | XMS REPORT | Continuity of Care Document ---
:1960 Author Organization [facility] t Address [address] [place] [address] [place] [id number] Care Team Providers Name Role Phone Jeb Mendoza MD Primary Care Physician Sim Parr MD Attending Clinician SIM PARR Attending Clinician Unavailable SIM PARR Attending Clinician Unavailable Doctor Unassigned, [place] Attending Clinician Unavailable Lab, Ang - Db Attending Clinician Unavailable JEB MENDOZA Attending Clinician Unavailable CLARY HARMAN Attending Clinician Unavailable 2, [facility] Attending Clinician Unavailable Payers Payer Name Policy Type Policy Number Effective Date Expiration Date S ourdarrin [place] PPO POS [id number] 2007 00:00:00 Problems Condition Condition Condition Status [...] hageal 01-28 ity of reflux reflux 00:00: [place] disease disease 00 MD [facility] 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 Center Added automatic ally from request for surgery [id number] Primary Primary Disease Active Univers malignant malignant 08-30 ity of neoplasm neoplasm 00:00: [place] of glottis of glottis 00 MD [facility] [place] Nicotine Nicotine Disease Active 2015-05 Unive rs dependence dependence -30 it y of 00:00: [place] 00 MD Payton camejo [facility] No known No known Disease Unive rs active active ity of problems problems [facility] Allergies, Adverse Reactions, Alerts Allergy Allergy Status Severity Reaction(s) Onset Inactive Treating Comm ents Source Name Type Date Date Clinician Penicill Propensi Active Other (See Unknown U nivers ins ty to Comments) 8- reaction ity o f adverse 00:00: [place] reaction 00 MD zoran camejo [facility] Penicill Propensi Active Other - See Unknown Univers ins ty to comments 8-14 reaction ity of adverse 00:00: [place] reaction 00 [facility] PENICILL Drug Active Other-Cmnt Univ ers INS Class 8-14 ity of 00:00: [place] 00 [facility] Social History Social Habit Start Date Stop Date Quantity Comments Source History of tobacco Cigarette Smoker University of use [facility] Exposure to 2022-06-17 2022-06-27 Not sure [facility] SARS-CoV-2 (event) 00:00:00 15:07:00 [facility] Tobacco use and 2022-06-27 2022-06-27 Smokeless tobacco Un iversity of exposure 00:00:00 00:00:00 non-user [facility] Alcohol intake 2019-05-02 2019-05-02 Current drinker Unive rsity of 00:00:00 00:00:00 of alcohol [facility] Cigarettes smoked 2018-03-14 2018-03-14 Univers ity of current (pack per 00:00:00 00:00:00 Jessica Kulkarni ) - Reported Cancer Ce nter Cigarette 2018-03-14 2018-03-14 University of pack-years 00:00:00 00:00:00 [facility] Tobacco Comment 2016-07-01 2016-07-01 puffs off 5 Universi ty of 00:00:00 00:00:00 cigarettes per [facility] Sex Ass[birth year] At [birth year] Universit y of 00:00:00 00:00:00 [facility] Smoking Status Start Date Stop Date Source Smokes tobacco daily 2022-06-27 00:00:00 [facility] ity [facility] Medications Ordered Filled Start Stop Current Ordering Indication Dosage Frequency Signature Comments Components Source Medication Medication Date Date Medication? Clinician (SIG) Name Name mirtazapine 2021-05 Yes [id number] 15mg TAKE 1 U nivers 15 mg 2-16 TABLET BY ity of tablet 00:00: MOUTH AT [address] diclofenac 2021-05 Yes TAKE 1 Unive rs 75 mg EC 2-16 TABLET BY ity of tablet 00:00: MOUTH [address] Medical TIMES [place] DAILY NEEDED FOR PAIN mirtazapine 2021-05 Yes [id number] 15mg TAKE 1 U nivers 15 mg 2-16 TABLET BY ity of tablet 00:00: MOUTH AT [address] Medical [place] diclofenac 2021-05 Yes TAKE 1 Unive rs 75 mg EC 2-16 TABLET BY ity of tablet 00:00: MOUTH [address] Medical TIMES [place] DAILY NEEDED FOR PAIN mirtazapine 2021-05 Yes [id number] 15mg TAKE 1 U nivers 15 mg 2-16 TABLET BY ity of tablet 00:00: MOUTH AT [address] Medical [place] diclofenac 2021- Yes TAKE 1 Unive rs 75 mg EC 2-16 TABLET BY ity of tablet 00:00: MOUTH [address] Medical TIMES Branch DAILY NEEDED FOR PAIN mirtazapine 2021-05 Yes [id number] 15mg TAKE 1 U nivers 15 mg 2-16 TABLET BY ity of tablet 00:00: MOUTH AT [address] diclofenac 2021-05 Yes TAKE 1 Unive rs 75 mg EC 2-16 TABLET BY ity of tablet 00:00: MOUTH [place] [id number] THREE Medical TIMES Branch DAILY NEEDED FOR PAIN mirtazapine 2021-05 Yes [id number] 15mg TAKE 1 U nivers 15 mg 2-16 TABLET BY ity of tablet 00:00: MOUTH AT [place] 00 BEDTIME Medical Branch diclofenac 2021-05 Yes TAKE 1 Unive rs 75 mg EC 2-16 TABLET BY ity of tablet 00:00: MOUTH THREE Medical TIMES Branch DAILY NEEDED FOR PAIN diclofenac 2021-05 Yes 75mg Take 1 Unive rs 75 mg EC 1-21 tablet by ity of tablet 00:00: mouth 3 00 (three) Medical times Branch daily as needed for Pain. diclofenac 2021-05- No 75mg Take 1 Univ ers 75 mg EC 1-21 12-16 tablet by ity o f tablet 00:00: 00:00 mouth 3 [place] 00 :00 (three) Medical times Branch daily as needed for Pain. DICLOFENAC Yes TAKE 1 Unive rs 75 mg EC 9-14 TABLET BY ity of tablet 00:00: MOUTH THREE Medical TIMES Branch DAILY NEEDED FOR PAIN enalapril Yes Take 1 Univer s 10 mg 9-14 tablet by ity of tablet 00:00: mouth once daily Medical Branch esomeprazol Yes TAKE 1 Univ ers e 40 mg 9-14 CAPSULE BY ity of capsule 00:00: MOUTH ONCE DAILY WITH Medical BREAKFAST Branch enalapril Yes Take 1 Univer s 10 mg 9-14 tablet by ity of tablet 00:00: mouth once daily Medical Branch esomeprazol Yes TAKE 1 Univ ers e 40 mg 9-14 CAPSULE BY ity of capsule 00:00: MOUTH ONCE DAILY WITH Medical BREAKFAST Branch enalapril Yes Take 1 Univer s 10 mg 9-14 tablet by ity of tablet 00:00: mouth once daily Medical Branch esomeprazol 0 Yes TAKE 1 Univ ers e 40 mg 9-14 CAPSULE BY ity of capsule 00:00: MOUTH ONCE a s DAILY WITH Medical BREAKFAST Branch enalapril 0 Yes Take 1 Univer s 10 mg 9-14 tablet by ity of tablet 00:00: mouth once daily Medical Branch esomeprazol 0 Yes TAKE 1 Univ ers e 40 mg 9-14 CAPSULE BY ity of capsule 00:00: MOUTH ONCE a s DAILY WITH Medical BREAKFAST Branch enalapril Yes Take 1 Univer s 10 mg 9-14 tablet by ity of tablet 00:00: mouth once daily Medical Branch esomeprazol 0 Yes TAKE 1 Univ ers e 40 mg 9-14 CAPSULE BY ity of capsule 00:00: MOUTH [place]CE [place] 00 DAILY WITH Medical BREAKFAST Branch enalapril Yes Take 1 Univer s 10 mg 9-14 tablet by ity of tablet 00:00: mouth once daily Medical Branch esomeprazol 0 Yes TAKE 1 Univ ers e 40 [...] a s DAILY WITH Medical BREAKFAST Branch DICLOFENAC 2021-0 2021- No TAKE 1 Univ ers 75 mg EC 9-14 11-21 TABLET BY ity o f tablet 00:00: 00:00 MOUTH [place] 00 :00 THREE Medical TIMES Branch DAILY NEEDED FOR PAIN DICLOFENAC 0 Yes TAKE 1 Unive rs 75 mg EC 8-08 TABLET BY ity of tablet 00:00: MOUTH 00 THREE Medical TIMES Branch DAILY NEEDED FOR PAIN DICLOFENAC 2021-0 2021- No TAKE 1 Univ ers 75 mg EC 8-08 09-14 TABLET BY ity o f tablet 00:00: 00:00 MOUTH [place] 00 :00 THREE Medical TIMES Branch DAILY NEEDED FOR PAIN methylPREDN 2021-0 Yes [id number] Take by Univers ISolone 4 7-08 mouth ity of mg tablets 00:00: [place]-INSTRU [place] 00 CTIONS. Medical follow Branch package directions mirtazapine 0 Yes [id number] 15mg Take 1 U nivers 15 mg 7-08 tablet by ity of tablet 00:00: mouth at [place] 00 bedtime. Medical Branch methylPREDN 2021-0 Yes [id number] Take by Univers ISolone 4 7-08 mouth ity of mg tablets 00:00: SEE-INSTRU [place] 00 CTIONS. Medical follow Branch package directions mirtazapine 2021-0 Yes [id number] 15mg Take 1 U nivers 15 mg 7-08 tablet by ity of tablet 00:00: mouth at [place] 00 bedtime. Medical Branch methylPREDN 2021-0 Yes [id number] Take by Univers ISolone 4 7-08 mouth ity of mg tablets 00:00: SEE-INSTRU [place] 00 CTIONS. Medical follow Branch package directions mirtazapine 2021-0 Yes [id number] 15mg Take 1 U nivers 15 mg 7-08 tablet by ity of tablet 00:00: mouth at [place] 00 bedtime. Medical Branch methylPREDN 2021-0 Yes [id number] Take by Univers ISolone 4 7-08 mouth ity of mg tablets 00:00: SEE-INSTRU [place] 00 CTIONS. Medical follow Branch package directions mirtazapine 2021-0 Yes [id number] 15mg Take 1 U nivers 15 mg 7-08 tablet by ity of tablet 00:00: mouth at [place] 00 bedtime. Medical Branch methylPREDN 2021-0 Yes [id number] Take by Univers ISolone 4 7-08 mouth ity of mg tablets 00:00: SEE-INSTRU [place] 00 CTIONS. Medical follow Branch package directions methylPREDN 2021-0 Yes [id number] Take by Univers ISolone 4 7-08 mouth ity of mg tablets 00:00: SEE-INSTRU [place] 00 CTIONS. Medical follow Branch package directions methylPREDN 2021-0 Yes [id number] Take by Univers ISolone 4 7-08 mouth ity of mg tablets 00:00: SEE-INSTRU [place] 00 CTIONS. Medical follow Branch package directions methylPREDN 2021-0 Yes [id number] Take by Univers ISolone 4 7-08 mouth ity of mg tablets 00:00: SEE-INSTRU [place] 00 CTIONS. Medical follow Branch package directions methylPREDN 2-0 Yes [id number] Take by Univers ISolone 4 7-08 mouth ity of mg tablets 00:00: SEE-INSTRU [place] 00 CTIONS. Medical follow Branch package directions mirtazapine 2-0 2022- No [id number] 15mg Take 1 Univers 15 mg 7-08 [...] of capsule 00:00: MOUTH ONCE [place] DAILY WITH Medical BREAKFAST Branch ENALAPRIL Yes Take 1 Univer s 10 mg 6-13 tablet by ity of tablet 00:00: mouth once daily Medical Branch ESOMEPRAZOL Yes TAKE 1 Univ ers E 40 mg 6-13 CAPSULE BY ity of capsule 00:00: MOUTH ONCE [place] DAILY WITH Medical BREAKFAST Branch ENALAPRIL 2021- No Take 1 Unive rs 10 mg 6-13 09-14 tablet by ity of tablet 00:00: 00:00 mouth once [place] 00 :00 daily Medical Branch ESOMEPRAZOL 2021- No TAKE 1 Uni vers E 40 mg 6-13 09-14 CAPSULE BY ity o f capsule 00:00: 00:00 MOUTH ONCE Abdelrah[place] as 00 :00 DAILY WITH Medical BREAKFAST Branch ZOLPIDEM 10 Yes [id number] 10mg TAKE 1 U nivers mg tablet 5-27 TABLET BY ity o f 00:00: MOUTH AT [place] 00 BEDTIME Medical NEEDED FOR Branch INSOMNIA ZOLPIDEM 10 Yes [id number] 10mg TAKE 1 U nivers mg tablet 5-27 TABLET BY ity o f 00:00: MOUTH AT [place] 00 BEDTIME Medical NEEDED FOR Branch INSOMNIA ZOLPIDEM 10 Yes [id number] 10mg TAKE 1 U nivers mg tablet 5-27 TABLET BY ity o f 00:00: MOUTH AT [place] 00 BEDTIME Medical NEEDED FOR Branch INSOMNIA ZOLPIDEM 10 Yes [id number] 10mg TAKE 1 U nivers mg tablet 5-27 TABLET BY ity o f 00:00: MOUTH AT [place] 00 BEDTIME Medical NEEDED FOR Branch INSOMNIA ZOLPIDEM 10 Yes [id number] 10mg TAKE 1 U nivers mg tablet 5-27 TABLET BY ity o f 00:00: MOUTH AT [place] 00 BEDTIME Medical NEEDED FOR Branch INSOMNIA ZOLPIDEM 10 Yes [id number] 10mg TAKE 1 U nivers mg tablet 5-27 TABLET BY ity o f 00:00: MOUTH AT [place] 00 BEDTIME Medical NEEDED FOR Branch INSOMNIA UNABLE TO Yes 1{tbl} Take 1 Univ ers FIND 1-07 tablet by ity of 08:59: mouth [place] 16 daily. Med Name: Payton camejo [facility] UNABLE TO Yes 1{tbl} Take 1 Univ ers FIND 1-07 tablet by ity of 08:59: mouth [place] 16 daily. Med Name: Payton camejo [facility] multivitami Yes 1{capsu Take 1 U nivers n capsule 1-07 le} capsule by ity of 08:57: mouth [place] 22 daily. MD Payton camejo [facility] multivitami Yes 1{capsu Take 1 U nivers n capsule 1-07 le} capsule by ity of 08:57: mouth [place] 22 daily. MD Payton camejo [facility] enalapril Yes hypertensio 10mg Take 10 mg Univers (VASOTEC) 107 n by mouth ity of 10 mg 08:55: daily [place] tablet 48 Indication s: Payton Silvai n on. [facility] zolpidem Yes 1{tbl} Take 1 Unive rs (AMBIEN) 10 1-07 tablet by ity of mg tablet 08:55: mouth at [place] 48 bedtime. MD Payton camejo [facility] aspirin 81 Yes 81mg Take 81 mg U nivers mg EC 07 by mouth ity of tablet 08:55: daily. [place] 48 MD Payton camejo [facility] enalapril Yes hypertensio 10mg Take 10 mg Univers (VASOTEC) 1-07 n by mouth ity of 10 mg 08:55: daily [place] tablet 48 Indication MD s: Payton Hyperti n on. Cancer [place] zolpidem Yes 1{tbl} Take 1 Unive rs (AMBIEN) 10 1-07 tablet by ity of mg tablet 08:55: mouth at [facility] [place] 48 bedtime. MD Payton camejo [facility] aspirin 81 Yes 81mg Take 81 mg U nivers mg EC 07 by mouth ity of tablet 08:55: daily. [place] 48 MD Payton camejo [facility] diclofenac Yes Take by [facility] ers sodium 1-07 mouth. ity of (VOLTAREN) 08:55: [place] 75 mg EC 48 tablet Payton camejo [facility] diclofenac Yes Take by [facility] ers sodium 1-07 mouth. ity of (VOLTAREN) 08:55: [place] 75 mg EC 48 tablet Payton n [facility] methylPREDN Yes Squamous Take as Univers ISolone 05-07 cell directed ity of (Medrol, 00:00: carcinoma (Direction [place] Jozef,) 4 mg 00 of larynx s on MD tablet blister Anderso pack) n [facility] omeprazole Yes Laryngitis 40mg Take 1 Univers (PriLOSEC) 05-07 capsule ity of 40 MG 00:00: (40 mg) by [place] capsule 00 mouth every Anderso morning n before Cancer breakfast. [place] varenicline Yes Primary 1mg Take 1 U nivers (Chantix) 05-07 malignant tablet (1 ity of mg tablet 00:00: neoplasm of mg) by [place] 00 glottis mouth MD twice Anderso daily. n [facility] methylPREDN Yes Squamous Take as Univers ISolone 07 cell directed ity of (Medrol, 00:00: carcinoma (Direction [place] Jozef,) 4 mg 00 of larynx s on MD tablet blister Anderso pack) [facility] omeprazole Yes Laryngitis 40mg Take 1 Univers (PriLOSEC) 1-07 capsule ity of 40 MG 00:00: (40 mg) by [place] capsule 00 mouth every Anderso morning n before Cancer breakfast. [place] varenicline Yes Primary 1mg Take 1 U nivers (Chantix) 1 -07 malignant tablet (1 ity of mg tablet 00:00: neoplasm of mg) by lisa sandoval MD twice Andveronikao daily. [facility] buPROPion 2018-05 Yes [id number] 75mg Take 1 U nivers 75 mg 1-05 tablet by ity of tablet 00:00: mouth 2 (two) Medical times Branch daily. For the first week, take one per day. propranolol 2018-05 Yes 10mg Take 1 Univ ers 10 mg 1-05 tablet by ity of tablet 00:00: mouth [place] 00 daily. Medical Branch buPROPion 2018-05 Yes [id number] 75mg Take 1 U nivers 75 mg 1-05 tablet by ity of tablet 00:00: mouth 2 (two) Medical times Branch daily. For the first week, take one per day. propranolol 2018-05 Yes 10mg Take 1 Univ ers 10 mg 1-05 tablet by ity of tablet 00:00: mouth [place] 00 daily. Medical Branch buPROPion 2018-05 Yes [id number] 75mg Take 1 U nivers 75 mg 1-05 tablet by ity of tablet 00:00: mouth 2 (two) Medical times Branch daily. For the first week, take one per day. propranolol 2018-05 Yes 10mg Take 1 Univ ers 10 mg 1-05 tablet by ity of tablet 00:00: mouth [place] 00 daily. Medical Branch buPROPion 2018-05 Yes [id number] 75mg Take 1 U nivers 75 mg 1-05 tablet by ity of tablet 00:00: mouth 2 (two) Medical times Branch daily. For the first week, take one per day. propranolol 2018-05 Yes 10mg Take 1 Univ ers 10 mg 1-05 tablet by ity of tablet 00:00: mouth [place] 00 daily. Medical Branch buPROPion 2018-05 Yes [id number] 75mg Take 1 U nivers 75 mg 1-05 tablet by ity of tablet 00:00: mouth 2 00 (two) Medical times Branch daily. For the first week, take one per day. propranolol 2018-05 Yes 10mg Take 1 Univ ers 10 mg 1-05 tablet by ity of tablet 00:00: mouth [place] 00 daily. Medical Branch buPROPion 2018-05 Yes [id number] 75mg Take 1 U nivers 75 mg 1-05 tablet by ity of tablet 00:00: mouth (two) Medical times Branch daily. For the first week, take one per day. propranolol 2018-05 Yes 10mg Take 1 Univ ers 10 mg 1-05 tablet by ity of tablet 00:00: mouth 00 daily. Medical Branch buPROPion 2018-05 Yes [id number] 75mg Take 1 U nivers 75 mg 1-05 tablet by ity of tablet 00:00: mouth (two) Medical times Branch daily. For the first week, take one per day. buPROPion 2018-05 Yes [id number] 75mg Take 1 U nivers 75 mg 1-05 tablet by ity of tablet 00:00: mouth (two) Medical times Branch daily. For the first week, take one per day. buPROPion 2018-05 Yes [id number] 75mg Take 1 U nivers 75 mg 1-05 tablet by ity of tablet 00:00: mouth [place] (two) Medical times Branch daily. For the first week, take one per day. varenicline Yes Take one Un mayuri (CHANTIX 7-25 0.5mg tab ity of STARTING 00:00: by mouth [facility]) 00 once daily Med ical 0.5 mg for 3 Branch (11)- 1 mg days, then (42) tablet one 0.5mg tab twice daily for 4 days, then one 1mg tab twice daily. varenicline Yes Take one Un mayuri (CHANTIX 7-25 0.5mg tab ity of STARTING 00:00: by mouth [facility]) 00 once daily Med ical 0.5 mg for 3 Branch (11)- 1 mg days, then (42) tablet one 0.5mg tab twice daily for 4 days, then one 1mg tab twice daily. varenicline Yes Take one Un mayuri (CHANTIX 7-25 0.5mg tab ity of STARTING 00:00: by mouth [facility]) 00 once daily Med ical 0.5 mg for 3 Branch (11)- 1 mg days, then (42) tablet one 0.5mg tab twice daily for 4 days, then one 1mg tab twice daily. varenicline Yes Take one Un mayuri (CHANTIX 7-25 0.5mg tab ity of STARTING 00:00: by mouth [facility]) 00 once daily Med ical 0.5 mg for 3 Branch (11)- 1 mg days, then (42) tablet one 0.5mg tab twice daily for 4 days, then one 1mg tab twice daily. varenicline Yes Take one Un mayuri (CHANTIX 7-25 0.5mg tab ity of STARTING 00:00: by mouth [facility]) 00 once daily Med ical 0.5 mg for 3 Branch (11)- 1 mg days, then (42) tablet one 0.5mg tab twice daily for 4 days, then one 1mg tab twice daily. varenicline 0 Yes Take one Un mayuri (CHANTIX 7-25 0.5mg tab ity of STARTING 00:00: by mouth [facility]) 00 once daily Med ical 0.5 mg for 3 Branch (11)- 1 mg days, then (42) tablet one 0.5mg tab twice daily for 4 days, then one 1mg tab twice daily. varenicline 2017- Yes 1 by mouth Univers 0.5 mg 2-07 per day ity of tablet 00:00: for 3 [place] 00 days, then Medical one by Branch mouth twice per day. varenicline 2017-1 Yes 1 by mouth Univers 0.5 mg 2-07 per day ity of tablet 00:00: for 3 00 days, then Medical one by Branch mouth twice per day. varenicline 2017- Yes 1 by mouth Univers 0.5 mg 2-07 per day ity of tablet 00:00: for 3 00 days, then Medical one by Branch mouth twice per day. varenicline 2017-1 Yes 1 by mouth Univers 0.5 mg 2-07 per day ity of tablet 00:00: for 3 [place] 00 days, then Medical one by Branch mouth twice per day. varenicline 2018-1 Yes 1 by mouth Univers 0.5 mg 2-07 per day ity of tablet 00:00: for 3 00 days, then Medical one by Branch mouth twice per day. varenicline 2018-1 Yes 1 by mouth Univers 0.5 mg 2-07 per day ity of tablet 00:00: for 3 [place] 00 days, then Medical one by Branch mouth twice per day. varenicline 2017-1 Yes 1 by mouth Univers 0.5 mg [...] 102 every Un mayuri MG ORAL TAB 5-17 11-05 8 hrs as ity of 00:00: 00:00 needed for [place] 00 :00 [facility] Medical Branch Immunizations Ordered Filled Immunization Date Status Comments [facility] e Immunization Name Name Td 2009-09-14 Completed University of 00:00:00 [facility] Td 2009-09-14 Completed University of 00:00:00 [facility] Td 2009-09-14 Completed University of 00:00:00 [facility] Branch Td 2009-09-14 Completed University of 00:00:00 [place] [facility] Td 2009-09-14 Completed University of 00:00:00 [facility] Branch TD, NOS 2009-09-14 Completed University of 00:00:00 [facility] Branch TD, NOS 2009-09-14 Completed University of 00:00:00 [facility] Branch TD, NOS 2009-09-14 Completed University of 00:00:00 [facility] TD, NOS 2009-09-14 Completed University of 00:00:00 [facility] Vital Signs Vital Name Observation Time Observation Value Comments Source Systolic blood 2021-11-05 15:57:00 117 mm[Hg] Univer sity [facility] pressure [facility] Diastolic blood 2021-11-05 15:57:00 65 mm[Hg] Unive [facility] [place] pressure [facility] Heart rate 2021-11-05 15:56:00 76 /min [facility] Body height 2021-11-05 15:56:00 182.9 cm [facility] Body weight 2021-11-05 15:56:00 56.7 kg [facility] BMI 2021-11-05 15:56:00 16.95 kg/m2 [facility] Oxygen saturation 2021-11-05 15:56:00 97 /min Uni [facility] in Arterial blood Medical Br anch by Pulse oximetry Procedures Procedure Date / Time Performed Performing Clinician Eugenio caballero [facility] PATIENT 2022-06-27 21:07:27 Doctor Autumn, No Univer sity of [place] FINANCIAL POLICY Name [facility] Plan of Care Planned Activity Planned Date Details Comments Source Future Scheduled 2021-12-11 COVID-19 Vaccination Uni versity of [place] Test 11:19:10 (#1) [code = COVID-19 And veronikaon Cancer Vaccination (#1)] Center Future Scheduled 2021-12-11 COVID-19 Vaccination Uni [facility] of [place] Test 11:19:10 (#1) [code = COVID-19 And rangel Cancer Vaccination (#1)] Center Encounters Start End Encounter Admission Attending Care Care Encounter Source Date/Time Date/Time Type Type Clinicians Facility Department ID 2022-06-28 2022-06-28 Telephone Keshav [facility] [id number] Univers 00:00:00 00:00:00 [facility] [id number] ity of [place] [id number] Abdelrahman as ALVAREZ?BLEA [id number] [address] MEDICAL OFFICE [facility] 2022-06-28 2022-06-28 Telephone Keshav [facility] [id number] [id number] Univers 00:00:00 00:00:00 [facility] [id number] ity of [place] [id number] Abdelrahman as ALVAREZ?BLEA [id number] [address] MEDICAL OFFICE BUILDING 2022-06-27 2022-06-27 Outpatient R SIM PARR [facility] [id number] Univers 16:32:50 23:59:00 SIM PARR [facility] 2022-06-27 2022-06-27 Orders Doctor [place] 1.2.840.114 [id number] Univers 00:00:00 00:00:00 Only Unassigned, [place] [id number] ity of [place] [facility] [id number] Abdelrahman as [id number] [address] 2022-04-15 2022-04-15 [facility] [id number] Univers 00:00:00 00:00:00 [facility] [id number] ity of [place] [id number] Abdelrahman as ALVAREZ?BLEA [id number] [address] OFFICE [facility] 2022-03-21 2022-03-21 [facility] [id number] Univers 00:00:00 00:00:00 [facility] [id number] ity of [place] [id number] Abdelrahman as ALVAREZ?BLEA [id number] [address] 2022-01-12 2022-01-12 [facility] [id number] Univers 00:00:00 00:00:00 [facility] [id number] ity of [place] [id number] Abdelrahman as ALVAREZ?BLEA [id number] [address] 2021-12-04 2021-12-04 [facility] [id number] Univers 00:00:00 00:00:00 [facility] [id number] ity of [place] [id number] Abdelrahman as ALVAREZ?BLEA [id number] [address] 2021-11-05 2021-11-05 [facility], Ang - Db [facility] [id number] Univers 12:15:00 12:30:00 Visit Keshav [facility] [id number]. 10 ity of [place] [id number] Abdelrahman as ALVAREZ?BLEA [id number] [facility] [address] [facility] OFFICE [facility] 2021-11-05 2021-11-05 Outpatient R SIM PARR [facility] [id number] Univers 10:20:00 12:02:58 SIM PARR [facility] 2021-11-05 2021-11-05 Office Keshav [facility] [id number] Univers 10:20:00 12:02:58 Visit [facility] [id number] ity of [place] [id number] Abdelrahman as ALVAREZ?BLEA [id number] [address] 2021-11-05 2021-11-05 Outpatient R SIM PARR [facility] [id number] Univers 10:20:00 12:02:58 SIM PARR [facility] [facility] 2021-10-31 2021-10-31 [facility] 1.2.840.114 [id number] Univers 00:00:00 00:00:00 [facility] [id number] ity of [place] [id number] Abdelrahman as ALVAREZ?BLEA [phone] [address] 2021-10-09 2021-10-[address] [facility] 1.2.840.114 [id number] Univers 00:00:00 00:00:00 [facility] [id number] ity of [place] [id number] Abdelrahman as ALVAREZ?BLEA [phone] [address] 2021-09-16 2021-09-[address] [facility] 1.2.840.114 [id number] Univers 00:00:00 00:00:00 [facility] [id number] ity of [place] [id number] Abdelrahman as ALVAREZ?BLEA [phone] [address] 2021-08-09 2021-08-09 [facility] 1.2.840.114 [id number] Univers 00:00:00 00:00:00 [facility] [id number] ity of [place] [id number] Abdelrahman as ALVAREZ?BLEA [phone] [address] 2021-07-19 2021-07-19 Johanna [facility] 1.2.840.114 [id number] Univers 00:00:00 00:00:[address] [facility] [id number] ity [id number] [phone] [address] 2021-06-14 2021-06-14 [facility] 1.2.840.114 [id number] Univers 00:00:00 00:00:00 [facility] [id number] ity of [place] [id number] Abdelrahman as ALVAREZ?BLEA [phone] [address] 2021-05-07 2021-05-07 Outpatient JEB COOL MDA MDA [id number] 08:40:27 23:59:00 Nelson camejo 2021-04-16 2021-04-16 Outpatient JEB COOL MDA MDA [id number] 11:08:22 23:59:00 Nelson camejo 2021-04-16 2021-04-16 Outpatient SARAH KEVINCHRISTELLE KAUR MDA [id number] 08:41:15 11:07:00 CLARY colungao n 2021-04-16 2021-04-16 Outpatient SARAH KEVINVINCENT MDA MDA [id number] 07:45:00 08:40:00 CLARY posadas n 2021-04-16 2021-04-16 Outpatient SARAH KEVINVINCENT, MDA MDA [id number] 08:12:16 08:12:16 CLARY colungao n 2021-03-30 2021-03-30 [facility] 1.2.840.114 [id number] Univers 00:00:00 00:00:00 [facility] [id number] ity of [place] 4.2.7.2.686 Abdelrahman as ALVAREZ?BLEA [phone] [address] 2021-03-02 2021-03-02 Outpatient SIM SANDHU [facility] [id number] Univers 16:20:00 16:20:00 SIM PARR [facility] 2021-02-03 2021-02-03 Refill Keshav [facility] 1.2.840.114 [id number] Univers 00:00:00 00:00:00 Sim [place] [id number] it[place] of [id number] [phone] [address] 2020-12-21 2020-12-21 Office [facility] 1.2.840.114 [id number] Univers 10:15:56 11:18:23 Visit Sim Garcia [facility] [id number] ity of [place] 4.2.7.2.686 Abdelrahman as Alvarez?Blea [phone] [address] Office [facility] 2020-12-21 2020-12-21 Outpatient SIM SANDHU [facility] [id number] Univers 10:40:00 10:40:00 SIM PARR [facility] 2020-12-11 2020-12-11 Telephone [facility] 1.2.840.114 [id number] Univers 00:00:00 00:00:00 Sim Garcia Shan [id number] ity of [id number] [phone] [address] 2020-12-11 2020-12-11 Telephone Keshav [facility] 1.2.840.114 [id number] Univers 00:00:00 00:00:00 Sim [place] [id number] ity of [place] [phone] [address] 2020-12-02 2020-12-02 [facility] 1.2.840.114 [id number] Univers 00:00:00 00:00:00 Sim Jose Shan [id number] ity of [place] [phone] Nh dicvt nal [address] [place] [address] 2020-11-25 2020-11-25 Refpaco Parr, [facility] 1.2.840.114 [id number] Univers 00:00:00 00:00:00 Sim CARTERDOMINIK 350.1.13.10 [facility] 4.2.7.2.[place] [phone] [facility] NAL [address] [place] [address] 2020-11-20 2020-11-20 Refpaco Parr, [facility] 1.2.840.114 [id number] Univers 00:00:00 00:00:00 Sim Torrez [id number] it[place] of [place] [phone] [facility] nal [address] [place] [address] 2020-10-25 2020-10-25 Refpaco Parr, [facility] 1.2.840.114 [id number] Univers 00:00:00 00:00:00 Sim Torrez [id number] ity of [place] [phone] [facility] nal [address] [place] [address] 2020-09-29 2020-09-29 Refpaco Parr [facility] 1.2.840.114 [id number] Univers 00:00:00 00:00:00 Sim Torrez 350.1.13.10 ity of [place].2.[place] [phone] Nh dicvt nal [address] [place] [address] 2020-08-19 2020-08-19 Refpaco Parr [facility] 1.2.840.114 [id number] Univers 00:00:00 00:00:00 Sim Torrez 350.1.13.10 ity of [place].2.[place] [phone] Nh dicvt nal [address] [place] [address] 2020-07-17 2020-07-17 Refpaco Parr [facility] 1.2.840.114 [id number] Univers 00:00:00 00:00:00 Sim Torrez 350.1.13.10 it[place] of [place].2.[place] [phone] [address] 2020-07-11 2020-07-11 [facility] 1.2.840.114 [id number] Univers 00:00:00 00:00:00 Sim Torrez 350.1.13.10 ity of [place] [phone] [address] 2020-05-29 2020-05-29 Orders Doctor MAMIE 1.2.840.114 [id number] Univers 00:00:00 00:00:00 Only Unassigned, VIOLET 350.1.13.10 ity of [place] [facility] 4.2.7.2.686 Abdelrahman as [phone] [address] 2020-05-27 2020-05-27 Ref[facility] 1.2.840.114 [id number] Univers 00:00:00 00:00:00 Sim Torrez 350.1.13.10 it[place] of [place] [phone] [address] 2020-05-21 2020-05-21 [facility] 1.2.840.114 [id number] Univers 00:00:00 00:00:00 Sim Torrez 350.1.13.10 it[place] of [place] [phone] [address] 2020-04-07 2020-04-07 Orders Doctor MAMIE 1.2.840.114 [id number] Univers 00:00:00 00:00:00 Only Unassigned, VIOLET 350.1.13.10 ity of [place] [facility] 4.2.7.2.686 Abdelrahman as [phone] [address] 2020-04-02 2020-04-02 Refill Keshav, [facility] 1.2.840.114 [id number] Univers 00:00:00 00:00:00 Sim Torrez 350.1.13.10 it[place] of [place] [phone] [facility] 092 [facility] 2020-02-25 2020-02-25 Refill Keshav, [facility] 1.2.840.114 [id number] Univers 00:00:00 00:00:00 Sim Torrez 350.1.13.10 ity of [place] [phone] [facility] 092 [facility] 2019-12-03 2019-12-03 Refill Keshav, [facility] 1.2.840.114 [id number] Univers 00:00:00 00:00:00 Sim Torrez 350.1.13.10 ity of [place] [phone] [facility] 092 [facility] 2019-11-26 2019-11-26 Stonecutter Assistant 2, Adc Lab [facility] 1.2.840.114 [id number] Univers 10:16:55 10:31:55 Visit Sim Parr 350.1.13 .10 ity of [place]2.[place].2.[place] [phone] [facility] 353 [facility] 2019-11-26 2019-11-26 Office Keshav [facility] 1.2.840.114 [id number] Univers 09:17:01 10:03:28 Visit iSm Torrez 350.1.13.10 ity of [place]2.[place].2.[place] [phone] [facility] 092 [facility] 2019-11-26 2019-11-26 Outpatient R SIM PARR [facility] [id number] Univers 09:20:00 09:20:00 SIM PARR ity of [facility] 2019-11-20 2019-11-20 Telephone Keshav [facility] 1.2.840.114 [id number] Univers 00:00:00 00:00:00 Sim Torrez 350.1.13.10 it[place] of [place] [phone] [address] 2019-10-08 2019-10-08 Refpaco Daileyjenn [facility] 1.2.840.114 [id number] Univers 00:00:00 00:00:00 Sim Torrez 350.1.13.10 it[place] of [place].2.[place] [phone] [address] 2019-09-02 2019-09-02 Refpaco Parr [facility] 1.2.840.114 [id number] Univers 00:00:00 00:00:00 Sim Torrez 350.1.13.10 [place] of [place] [phone] [address] 2019-08-18 2019-08-18 Refpaco Parr [facility] 1.2.840.114 [id number] Univers 00:00:00 00:00:00 Sim [place] 350.1.13.10 ity of [place].2.[place] [phone] [address] 2019-07-31 2019-07-31 Refpaco Parr [facility] 1.2.840.114 [id number] Univers 00:00:00 00:00:00 Sim [place] 350.1.13.10 it[place] of [place].2.[place] [phone] [facility] nal [address] [place] [address] 2019-07-26 2019-07-26 Refpaco Parr [facility] 1.2.840.114 [id number] Univers 00:00:00 00:00:00 Sim [place] 350.1.13.10 it[place] of [place].2.[place] [phone] [address] 2019-06-13 2019-06-13 [facility] 1.2.840.114 [id number] Univers 00:00:00 00:00:00 Sim Torrez 350.1.13.10 [place] 4.2.7.2.686 Lucero meehan Professio [phone] Nh dical nal [address] Results This patient has no known results.
[2022-07-03] MEDS ORDERED: cloNIDine HCL 0.1 MG TAB ONE (17:16)
[2022-07-03 17:40] LABS: Hematocrit 40.8 % (39.6-49.0); Lymphocytes % 10.9 % (15.3-44.8); MCV 90.8 fL (80-100); MPV 7.4 fL (7.6-11.3); RBC Red Blood Cell Count 4.49 M/uL (4.33-5.43)
[2022-07-03 18:06] LABS: Potassium 3.7 mmol/L (3.5-5.1); Troponin High Sensitivity 7.1 pg/mL (<58.9)
--- NOTE | 2022-07-03 18:32 | RAD REPORT ---
EXAM DESCRIPTION: Alfred Single View07/03/2022 6:26 pm CLINICAL HISTORY: Hypertension COMPARISON: June 2022 FINDINGS: Lungs are hyperaerated. The lungs appear clear of acute infiltrate. The heart is normal size IMPRESSION: No acute abnormalities displayed
[2022-07-03] MEDS ORDERED: HYDRALAZINE HCL 10 MG TABLET ONE (19:45)
--- NOTE | 2022-07-03 19:53 | EDPHYS ---
Physician Documentation [facility] Name: Josiah Monreal Age: 61 yrs Sex: Male : 1960 Arrival Date: 07/03/2022 Time: 16:47 Bed 14 Private MD: ED Physician Pete Cai HPI: 07/03 18:49 This 61 yrs old Male presents to ER via EMS with complaints of Right arm pain and kdr hypertension. 18:49 Patient has a history of hypertension. Today he noticed that he was having some kdr discomfort in his right forearm and had to measure his blood pressure and noted that it was high. Systolic was over 200. He is not having any other specific signs or symptoms. He had been seen here in this department for similar issues and hypertension on June 13 of this year. He was prescribed hydralazine at that time and according to the patient has had his blood pressure well controlled until today. On further interview, the significant other and patient admits to significant alcohol consumption over the past 3 days. 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 Patient denies chest pain shortness of breath or any other obvious cardiac related signs. Is noted that EMS aggressively treated the patient's "chest pain" and this information is provided elsewhere in the chart. Patient for me denies chest pain at any time. Patient was completely asymptomatic in the emergency department and completely nontoxic-appearing and not requiring emergent intervention despite his blood pressure being elevated initially. Onset: The symptoms/episode began/occurred suddenly, Couple hours prior to arrival. Severity of symptoms: At their worst the symptoms were mild moderate just prior to arrival, in the emergency department the symptoms have improved mildly. The patient has not experienced similar symptoms in the past. The patient has been recently seen at the [facility] Emergency Department, last month. Historical: - Allergies: 17:05 PENICILLINS; ll1 - PMHx: 17:05 Hypertensive disorder; ll1 - Immunization history:: Adult Immunizations up to date. - Social history:: Smoking status: unknown. ROS: 18:49 Constitutional: Negative for fever, chills, and weight loss, Eyes: Negative for injury, kdr pain, redness, and discharge, ENT: Negative for injury, pain, and discharge, Neck: Negative for injury, pain, and swelling, Cardiovascular: Negative for chest pain, palpitations, and edema, Respiratory: Negative for shortness of breath, cough, wheezing, and pleuritic chest pain, Abdomen/GI: Negative for abdominal pain, nausea, vomiting, diarrhea, and constipation, Back: Negative for injury and pain, : Negative for injury, bleeding, discharge, and swelling, MS/Extremity: Negative for injury and deformity, Skin: Negative for injury, rash, and discoloration, Neuro: Negative for headache, weakness, numbness, tingling, and seizure activity. Psych: Negative for depression, anxiety, suicide ideation, homicidal ideation, and hallucinations, Allergy/Immunology: Negative for hives, rash, and allergies, Endocrine: Negative for neck swelling, polydipsia, polyuria, polyphagia, and marked weight changes, Hematologic/Lymphatic: Negative for swollen nodes, abnormal bleeding, and unusual bruising. Exam: 18:26 Constitutional: This is a well developed, well nourished patient who is awake, alert, kdr and in no acute distress. Head/Face: Normocephalic, atraumatic. Eyes: Pupils equal round and reactive to light, extra-ocular motions intact. Lids and lashes normal. Conjunctiva and sclera are non-icteric and not injected. Cornea within normal limits. Periorbital areas with no swelling, redness, or edema. Neck: Trachea midline, no thyromegaly or masses palpated, and no cervical lymphadenopathy. Supple, full range of motion without nuchal rigidity, or vertebral point tenderness. No Meningismus. Chest/axilla: Normal chest wall appearance and motion. Nontender with no deformity. No lesions are appreciated. Cardiovascular: Regular rate and rhythm with a normal S1 and S2. No gallops, murmurs, or rubs. Normal PMI, no JVD. No pulse deficits. Respiratory: Lungs have equal breath sounds bilaterally, clear to auscultation and percussion. No rales, rhonchi or wheezes noted. No increased work of breathing, no retractions or nasal flaring. Abdomen/GI: Soft, non-tender, with normal bowel sounds. No distension or tympany. No guarding or rebound. No evidence of tenderness throughout. Back: No spinal tenderness. No costovertebral tenderness. Full range of motion. Skin: Warm, dry with normal turgor. Normal color with no rashes, no lesions, and no evidence of cellulitis. MS/ Extremity: Pulses equal, no cyanosis. Neurovascular intact. Full, normal range of motion. Neuro: Awake and alert, GCS 15, oriented to person, place, time, and situation. Cranial nerves II-XII grossly intact. Motor strength 5/5 in all extremities. Sensory grossly intact. Cerebellar exam normal. Normal gait. Psych: Awake, alert, with orientation to person, place and time. Behavior, mood, and affect are within normal limits. 18:26 ECG was reviewed by the Attending Physician. 19:49 ECG was reviewed by the Attending Physician. 4 Vital Signs: 17:03 BP 193 / 104; Pulse 79; Resp 17; Pulse Ox 100% on R/A; ll1 17:59 BP 167 / 92; Pulse 73; Pulse Ox 98% ; ll1 19:00 BP 144 / 84; Pulse 77; Resp 18; Temp 98; Pulse Ox 98% on R/A; Pain 0/10; pf1 19:13 BP 144 / 84; ll1 20:00 BP 130 / 87; Pulse 66; Resp 18; Temp 98.1; Pulse Ox 98% on R/A; Pain 0/10; pf1 MDM: 18:26 Data reviewed: vital signs, nurses notes, lab test result(s), EKG, radiologic studies. kdr Consideration of Admission/Observation Escalation of care including admission/observation considered. 19:13 ED course: Patient care was assumed to from daytime provider Dr. Hester, patient is sp4 awaiting for his work-up result. 19:21 Patient medically screened. [facility] 19:49 Differential Diagnosis Hypertensive urgency, uncontrolled hypertension, ACS. ED course: sp4 61-year-old male presents with high blood pressure at home, patient's work-up revealed no significant abnormalities, no sign of heart failure or ACS, patient with EKG is unremarkable except for rightward axis, patient will be prescribed as needed clonidine for blood pressure control at home and he will be advised to continue his antihypertensive regimen HCTZ 25 mg daily as prescribed in the past advised to see primary care physician in 7 to 14 days for blood pressure check in the office. 07/03 17:11 Order name: Basic Metabolic Panel kdr 07/03 17:11 Order name: CBC with Diff kdr 07/03 17:11 Order name: Troponin HS kdr 07/03 17:11 Order name: XRAY Chest (1 view) [facility] 07/03 17:11 Order name: EKG; Complete Time: 17:12 kdr 07/03 17:11 Order name: Cardiac monitoring; Complete Time: 17:13 kdr 07/03 17:11 Order name: EKG - Nurse/Tech; Complete Time: 17:13 [facility] 07/03 17:11 Order name: IV Saline Lock; Complete Time: 17:31 kdr 07/03 17:11 Order name: Labs collected and sent; Complete Time: 17:31 kdr 07/03 17:11 Order name: O2 Per Protocol; Complete Time: 17:13 kdr 07/03 17:11 Order name: O2 Sat Monitoring; Complete Time: 17:13 kdr 07/03 17:46 Order name: CBC with Automated Diff; Complete Time: 18:38 EDMS 07/03 18:06 Order name: Basic Metabolic Panel; Complete Time: 18:38 EDMS 07/03 18:06 Order name: Troponin High Sensitivity; Complete Time: 18:38 EDMS 07/03 18:32 Order name: RAD; Complete Time: 18:38 EDMS EC:26 Rate is 79 beats/min. Rhythm is regular, Sinus Rhythm with No ectopy. QRS [place] is kdr Normal. NC interval is normal. QRS interval is normal. QT interval is normal. Clinical impression: NSR w/ Non-specific ST/T Changes. Administered Medications: 17:31 Drug: cloNIDine 0.2 mg Route: PO; ll1 19:00 Follow up: Response: No adverse reaction; Marked relief of symptoms; Blood pressure is pf1 lowered 20:12 CANCELLED (Physician Discretion): hydrALAZINE 10 mg PO once pf1 Disposition Summary: 07/03/22 19:53 Discharge Ordered Location: Home sp4 Problem: new sp4 Symptoms: have improved sp4 Condition: Stable sp4 Diagnosis - Hypertensive urgency sp4 - Essential (primary) hypertension sp4 Followup: sp4 - With: Private Physician - When: 7 - 10 days - Reason: Discharge Instructions: - Discharge Summary Sheet sp4 - Hypertension, Adult sp4 Forms: - Thank You Letter sp4 Prescriptions: - clonidine HCl 0.1 mg Oral tablet - take 1 tablet by ORAL route every 8 hours As needed for systolic pressure > sp4 180; 60 tablet; Refills: 0, Product Selection Permitted Signatures: Dispatcher Medst Devon Burns MD MD kdr Robbin Renteria RN RN ll1 Tammy aden RN RN pf1 Pete Cai MD MD sp4 Corrections: (The following items were deleted from the chart) 20:12 18:44 hydrALAZINE 10 mg PO once ordered. kdr pf1
--- NOTE | 2022-07-03 19:53 | ER ---
Nurse's Notes [facility] Name: Josiah Monreal Age: 61 yrs Sex: Male : 1960 Arrival Date: 07/03/2022 Time: 16:47 Bed 14 Private MD: Diagnosis: Hypertensive urgency;Essential (primary) hypertension Presentation: 07/03 17:03 Chief complaint: Patient states: CP, not feeling well. EMS states: 2 nitro and aspirin ll1 324 MG PO given en route. BP 179/112 and 199/105. Fingerstick 130. 20 L AC NS slow drip. Coronavirus screen: Vaccine status: Patient reports receiving the 2nd dose of the covid vaccine. Client denies travel out of the [place] in the last 14 days. At this time, the client does not indicate any symptoms associated with coronavirus-19. Ebola Screen: Patient denies travel to an Ebola-affected area in the 21 days before illness onset. Initial Sepsis Screen: Does the patient meet any 2 criteria? No. Patient's initial sepsis screen is negative. Does the patient have a suspected source of infection? No. Patient's initial sepsis screen is negative. Risk Assessment: Do you want to hurt yourself or someone else? Patient reports no desire to harm self or others. Onset of symptoms. 17:03 Method Of Arrival: EMS ll1 17:03 Acuity: RC 3 ll1 Triage Assessment: 17:05 General: Appears in no apparent distress. Behavior is calm, cooperative, appropriate ll1 for age. Pain: Complains of pain in chest Quality of pain is described as aching. Cardiovascular: Reports chest pain, high BP. Historical: - Allergies: 17:05 PENICILLINS; ll1 - PMHx: 17:05 Hypertensive disorder; ll1 - Immunization history:: Adult Immunizations up to date. - Social history:: Smoking status: unknown. Screenin:45 [facility] ED Fall Risk Assessment (Adult) Score/Fall Risk Level 0 - 2 = Low Risk ll1 Oriented to surroundings, Maintained a safe environment, Educated pt \T\ family on fall prevention, incl call for assistance when getting out of bed, Hourly rounding (assess needs \T\ fall precautionary measures) done. Abuse screen: Denies threats or abuse. Nutritional screening: No deficits noted. Tuberculosis screening: No symptoms or risk factors identified. Assessment: 17:35 Reassessment: No changes from previously documented assessment. Patient and/or family ll1 updated on plan of care and expected duration. Pain level reassessed. Patient is alert, oriented x 3, equal unlabored respirations, skin warm/dry/pink. 18:00 Reassessment: No changes from previously documented assessment. Dr. Hester at . ll1 18:44 Reassessment: No changes from previously documented assessment. Patient and/or family ll1 updated on plan of care and expected duration. Pain level reassessed. Patient is alert, oriented x 3, equal unlabored respirations, skin warm/dry/pink. 19:10 General: Appears in no apparent distress. comfortable, well groomed, well developed, pf1 Behavior is calm, cooperative, appropriate for age, quiet. 19:10 Pain: Denies pain. Neuro: No deficits noted. Level of Consciousness is awake, alert, pf1 obeys commands, Oriented to person, place, time, situation. Cardiovascular: No deficits noted. Capillary refill < 3 seconds Patient's skin is warm and dry. Respiratory: No deficits noted. Airway is patent Trachea midline Respiratory effort is even, unlabored, Respiratory pattern is regular, symmetrical. GI: No deficits noted. No signs and/or symptoms were reported involving the gastrointestinal system. : No deficits noted. No signs and/or symptoms were reported regarding the genitourinary system. EENT: No deficits noted. No signs and/or symptoms were reported regarding the EENT system. Derm: No deficits noted. No signs and/or symptoms reported regarding the dermatologic system. 19:19 Reassessment: report given to VENKATA Rod. ll1 Vital Signs: 17:03 BP 193 / 104; Pulse 79; Resp 17; Pulse Ox 100% on R/A; ll1 17:59 BP 167 / 92; Pulse 73; Pulse Ox 98% ; ll1 19:00 BP 144 / 84; Pulse 77; Resp 18; Temp 98; Pulse Ox 98% on R/A; Pain 0/10; pf1 19:13 BP 144 / 84; ll1 20:00 BP 130 / 87; Pulse 66; Resp 18; Temp 98.1; Pulse Ox 98% on R/A; Pain 0/10; pf1 ED Course: 16:47 Patient arrived in ED. ss 16:56 Devon Hester MD is Attending Physician. kdr 17:00 No provider procedures requiring assistance completed. Maintain EMS IV. Dressing ll1 intact. Good blood return noted. Site clean \T\ dry. Gauge \T\ site: 20 G L AC. 17:02 Robbin Renteria, RN is Primary Nurse. ll1 17:05 Triage completed. ll1 17:05 Arm band placed on Patient placed in an exam room, on a stretcher. ll1 18:45 Patient has correct armband on for positive identification. Bed in low position. Call ll1 light in reach. Side rails up X2. Client placed on continuous cardiac and pulse oximetry monitoring. NIBP monitoring applied. 19:13 Attending Physician role handed off by Devon Hester MD sp4 19:13 Pete Cai MD is Attending Physician. sp4 20:12 IV discontinued, intact, bleeding controlled, No redness/swelling at site. Pressure pf1 dressing applied. Administered Medications: 17:31 Drug: cloNIDine 0.2 mg Route: PO; ll1 19:00 Follow up: Response: No adverse reaction; Marked relief of symptoms; Blood pressure is pf1 lowered 20:12 CANCELLED (Physician Discretion): hydrALAZINE 10 mg PO once pf1 Medication: 18:45 VIS not applicable for this client. ll1 Outcome: 19:53 Discharge ordered by . sp4 20:12 Discharged to home ambulatory, with family. pf1 20:12 Condition: improved 20:12 Discharge instructions given to patient, family, Instructed on discharge instructions, follow up and referral plans. Demonstrated understanding of instructions, follow-up care, medications, Prescriptions given X 1. 20:13 Patient left the ED. pf1 Signatures: Devon Hester MD MD kdr Smirch, Shelby, RN RN ss Robbin Renteria RN RN ll1 Tammy aden RN RN pf1 Pete Cai MD MD sp4
--- NOTE | 2022-07-04 16:38 | EKG ---
Test Date: 2022-07-03 Test Time: 17:06:49 Petrologist: ZULEYKA MEASUREMENT RESULTS: Intervals: Rate: 79 CA: 126 QRSD: 82 QT: 364 QTc: 417 [place]: P: 80 CA: 126 QRS: 99 T: 80 INTERPRETIVE STATEMENTS: Sinus rhythm with premature atrial complexes Rightward axis Pulmonary disease pattern Abnormal ECG Compared to ECG 06/13/2022 21:45:48 Atrial premature complex(es) now present Sinus arrhythmia no longer present Electronically Signed On 07-04-22 16:36:24 [employer]PER[employer] by Elkin Oliver
== END 2022-07-03 20:13 | disposition home or self-care (01) ==
LOC: ER 16:39
DX: I16.0 Hypertensive urgency (principal); I10 Essential (primary) hypertension; Z88.0 Allergy status to penicillin
CPT/HCPCS: 36415; 71045; 80048; 84484; 85025; 93005; 99283